=== PATIENT | female | born 1955 | race Caucasian/White ===

== ENCOUNTER → 2016-09-14 | Outpatient (CLI) | payer MEDICARE ==
--- NOTE | 2016-09-14 16:03 | XR ---
EXAMINATION TYPE: XR cervical spine comp DATE OF EXAM: 09/14/2016 3:55 PM COMPARISON: NONE HISTORY: Cervical pain. TECHNIQUE: 5 view cervical spine FINDINGS: There is moderate foraminal narrowing of C3-4 on the right. Some mild foraminal narrowing C 5-6 C6-7 is present on the right. Left foramen appear patent. Prevertebral space is normal. There is posterior disc space narrowing C5-C6 C6-7. Small anterior vertebral body spurs are present C5 and C6. Posterior spinal lamellar line is intact. Odontoid is limited with overlying occiput. IMPRESSION: 1. Mild degenerative disc changes and mild foraminal narrowing discussed above
== END | disposition home or self-care (01) ==
LOC: RADXRMAIN 15:33
PROVIDERS: ATTEND Family Medicine
DX: M99.71 Connective tissue and disc stenosis of intervertebral foramina of cervical region (principal); M50.10 Cervical disc disorder with radiculopathy, unspecified cervical region
CPT/HCPCS: 72050

== ENCOUNTER 2016-10-26 12:21 | Inpatient (IN) | payer MEDICARE ==
[2016-10-26] MEDS ORDERED: hydrALAZINE HCL 20 MG/ML 1 ML VIAL IVP STA ×2 (13:24→15:55)
--- NOTE | 2016-10-26 13:27 | ED ---
General Adult HPI - General Chief complaint: Recheck/Abnormal Lab/Rx Stated complaint: High BP Time Seen by Provider: 10/26/16 12:39 Source: patient, EMS, RN notes reviewed Mode of arrival: EMS Limitations: no limitations - History of Present Illness Initial comments: Patient is 61-year-old female who presents emergency room today with a chief complaint of elevated blood pressure and headache. Patient does admit that she was on her way to physical therapy today. She does admit to chronic back and neck pain. States she has a history of fibromyalgia. States she was driving in today and was more stressed out because the roads were bad. She states that when she got there she had a blood pressure check was elevated. States was checked again and was still elevated and was advised come here to the emergency room for further evaluation. Patient was brought in by EMS. She states she's noticed last week when she was at physical therapy her blood pressure was mildly elevated. She believes that was in the 160s. Patient states she has had a headache. She is currently rates it a 4/10. She states it feels like it' s up front. She believes it may be coming from her neck pain. She denies any other complaints or symptoms. She states she usually takes Ultram for pain. She states she did take one earlier today. Does admit to a history of hypertension and takes blood pressure medication. She states she believes she takes a dose in the morning and did take her normal pills. Patient admits that EMS told her blood sugar was elevated at 299. She states this is being watched by the family doctor. She states she's been borderline in the past. Patient denies any recent fever, chills, shortness of breath, chest pain, back pain, abdominal pain, nausea or vomiting, numbness or tingling, dysuria or hematuria, constipation or diarrhea, visual changes, or any other complaints. - Related Data Home Medications Medication Instructions Recorded Confirmed Albuterol Inhaler [Ventolin Hfa 1 - 2 puff INHALATION RT-QID PRN 10/26/16 Inhaler] Albuterol Nebulized [Ventolin 2.5 mg INHALATION RT-QID PRN 10/26/16 10/26/16 Nebulized] Bumetanide [BUMEX] 0.25 mg PO DAILY PRN 10/26/16 10/26/16 Fluticasone Nasal [place] [Flonase 2 spr EA NOSTRIL HS 10/26/16 10/26/16 Nasal [place]] Levothyroxine Sodium [Synthroid] 175 mcg PO DAILY 10/26/16 10/26/16 Meloxicam [Mobic] 15 mg PO DAILY 10/26/16 10/26/16 Metoprolol Tartrate [Lopressor] 50 mg PO BID 10/26/16 10/26/16 Montelukast Sodium [Singulair] 10 mg PO HS 10/26/16 10/26/16 Multivitamins, Thera [Multivitamin 1 tab PO DAILY 10/26/16 10/26/16 (formulary)] Omeprazole [PriLOSEC] 20 mg PO AC-BRKFST 10/26/16 10/26/16 Polyethylene Glycol 3350 [Miralax] 17 gm PO DAILY PRN 10/26/16 10/26/16 Simvastatin [Zocor] 10 mg PO HS 10/26/16 10/26/16 traMADol HCl [Ultram] 50 mg PO TID PRN 10/26/16 10/26/16 traZODone HCL [Desyrel] 150 mg PO HS 10/26/16 10/26/16 Allergies Allergy/AdvReac Type Severity Reaction Status Date / Time amoxicillin [From Augmentin] Allergy Unknown Verified 10/26/16 13:37 clavulanic acid Allergy Unknown Verified 10/26/16 13:37 [From Augmentin] milk Allergy Nausea & Verified 10/26/16 13:37 Vomiting & Diarrhea sulfamethoxazole Allergy Unknown Verified 10/26/16 13:37 [From Bactrim] trimethoprim [From Bactrim] Allergy Unknown Verified 10/26/16 13:37 Review of Systems ROS Statement: Those systems with pertinent positive or pertinent negative responses have been documented in the HPI. ROS Other: All systems not noted in ROS Statement are negative. Past Medical History Past Medical History: Diabetes Mellitus, Hypertension History of Any Multi-Drug Resistant Organisms: None Reported Past Surgical History: No Surgical Hx Reported Past Psychological History: Anxiety, Depression General Exam - General Exam Comments Initial Comments: General: The patient is awake and alert, in no distress, and does not appear acutely ill. Eye: Pupils are equal, round and reactive to light, extra-ocular movements are intact. No nystagmus. There is normal conjunctiva bilaterally. No signs of icterus. Ears, nose, mouth and throat: There are moist mucous membranes and no oral lesions. Neck: The neck is supple, there is no tenderness or JVD. Cardiovascular: There is a regular rate and rhythm. No murmur, rub or gallop is appreciated. Respiratory: Lungs are clear to auscultation, respirations are non-labored, breath sounds are equal. No wheezes, stridor, rales, or rhonchi. Gastrointestinal: Soft, non-distended, non-tender abdomen without masses or organomegaly noted. There is no rebound or guarding present. No CVA tenderness. Bowel sounds are unremarkable. Musculoskeletal: Normal ROM, no tenderness. Strength 5/5. Sensation intact. Pulses equal bilaterally 2+. Neurological: A&O x 3. CN II-XII intact, There are no obvious motor or sensory deficits. Coordination appears grossly intact. Speech is normal. Skin: Skin is warm and dry and no rashes or lesions are noted. Psychiatric: Cooperative, appropriate mood & affect, normal judgment. Limitations: no limitations Course Vital Signs 10/26/16 10/26/16 10/26/16 12:40 13:00 13:32 Temperature 98.7 F Pulse Rate 62 61 Pulse Rate [ 70 Right Standing Pulse Oximetery ] Respiratory 16 16 Rate Blood Pressure 200/110 183/88 O2 Sat by Pulse 91 L 95 Oximetry 10/26/16 10/26/16 10/26/16 15:00 15:52 16:21 Temperature Pulse Rate 88 72 70 Pulse Rate [ Right Standing Pulse Oximetery ] Respiratory 18 18 18 Rate Blood Pressure 176/87 220/100 196/91 O2 Sat by Pulse 96 96 98 Oximetry 10/26/16 18:03 Temperature Pulse Rate 73 Pulse Rate [ Right Standing Pulse Oximetery ] Respiratory 16 Rate Blood Pressure 212/100 O2 Sat by Pulse 97 Oximetry - Reevaluation(s) Reevaluation #1: 10/26/16 13:50 Patient reexamined at this time and blood pressure has improved after 10 mg hydralazine. She states headache feeling slightly better. She mitts at this time she is been having some discomfort to the right side of the chest wall. She states this started on her way to the hospital in the ambulance. Patient did not state this complaint initially. EKG and troponin currently pending. EKG Findings - EKG Comments: EKG Findings:: EKG is performed at 1411: Shows normal sinus rhythm at 61 bpm. NC interval 164. QRS 132. QT/QTc 472/475. Shows evidence for a left axis deviation and right bundle branch block. No acute ST changes. Medical Decision Making - Medical Decision Making Patient reexamined at this time shows no signs of distress. She is resting comfortably in the stretcher. Blood pressure remains elevated here the emergency room after several doses of blood pressure medication. Patient's repeat troponin negative. Patient's still having mild headache will be admitted for hypertension urgency. Case discussed with the physician Dr. Johnson. Patient with the plan states understanding. - Lab Data Result diagrams: 10/26/16 12:41 10/26/16 12:41 Lab Results 10/26/16 10/26/16 10/26/16 Range/Units 12:41 12:41 12:41 WBC 4.7 (3.8-10.6) k/uL RBC 4.24 (3.80-5.40) m/uL Hgb 13.6 (11.4-16.0) gm/dL Hct 40.4 (34.0-46.0) % MCV 95.1 (80.0-100.0) fL MCH 32.1 (25.0-35.0) pg MCHC 33.8 (31.0-37.0) g/dL RDW 13.0 (11.5-15.5) % Plt Count 164 (150-450) k/uL Neutrophils % 62 % Lymphocytes % 26 % Monocytes % 5 % Eosinophils % 2 % Basophils % 1 % Neutrophils # 2.9 (1.3-7.7) k/uL Lymphocytes # 1.2 (1.0-4.8) k/uL Monocytes # 0.2 (0-1.0) k/uL Eosinophils # 0.1 (0-0.7) k/uL Basophils # 0.0 (0-0.2) k/uL Sodium 140 (137-145) mmol/L Potassium 3.6 (3.5-5.1) mmol/L Chloride 100 (98-107) mmol/L Carbon Dioxide 30 (22-30) mmol/L Anion Gap 10 mmol/L BUN 12 (7-17) mg/dL Creatinine 0.70 (0.52-1.04) mg/dL Est GFR (MDRD) Af Amer >60 (>60 ml/min/1.73 sqM) Est GFR (MDRD) Non-Af >60 (>60 ml/min/1.73 sqM) Glucose 226 H (74-99) mg/dL Calcium 9.0 (8.4-10.2) mg/dL Total Bilirubin 1.1 (0.2-1.3) mg/dL AST 68 H (14-36) U/L ALT 79 H (9-52) U/L Alkaline Phosphatase 85 (38-126) U/L Troponin I <0.012 (0.000-0.034) ng/mL Total Protein 6.5 (6.3-8.2) g/dL Albumin 3.7 (3.5-5.0) g/dL 10/26/16 Range/Units 15:26 WBC (3.8-10.6) k/uL RBC (3.80-5.40) m/uL Hgb (11.4-16.0) gm/dL Hct (34.0-46.0) % MCV (80.0-100.0) fL MCH (25.0-35.0) pg MCHC (31.0-37.0) g/dL RDW (11.5-15.5) % Plt Count (150-450) k/uL Neutrophils % % Lymphocytes % % Monocytes % % Eosinophils % % Basophils % % Neutrophils # (1.3-7.7) k/uL Lymphocytes # (1.0-4.8) k/uL Monocytes # (0-1.0) k/uL Eosinophils # (0-0.7) k/uL Basophils # (0-0.2) k/uL Sodium (137-145) mmol/L Potassium (3.5-5.1) mmol/L Chloride (98-107) mmol/L Carbon Dioxide (22-30) mmol/L Anion Gap mmol/L BUN (7-17) mg/dL Creatinine (0.52-1.04) mg/dL Est GFR (MDRD) Af Amer (>60 ml/min/1.73 sqM) Est GFR (MDRD) Non-Af (>60 ml/min/1.73 sqM) Glucose (74-99) mg/dL Calcium (8.4-10.2) mg/dL Total Bilirubin (0.2-1.3) mg/dL AST (14-36) U/L ALT (9-52) U/L Alkaline Phosphatase (38-126) U/L Troponin I <0.012 (0.000-0.034) ng/mL Total Protein (6.3-8.2) g/dL Albumin (3.5-5.0) g/dL Disposition Clinical Impression: Hypertensive urgency Disposition: ADMITTED IP TO THIS HOSP Condition: Stable Time of Disposition: 18:18
[2016-10-26 13:30] LABS: ALT 79 U/L (9-52); AST 68 U/L (14-36); Alkaline Phosphatase 85 U/L (38-126); Anion Gap 10 mmol/L; Blood Urea Nitrogen 12 mg/dL (7-17); Carbon Dioxide 30 mmol/L (22-30); Chloride 100 mmol/L (98-107); Glucose 226 mg/dL (74-99); Non-African American GFR(MDRD) >60 (>60 ml/min/1.73 sqM); Potassium 3.6 mmol/L (3.5-5.1); Sodium 140 mmol/L (137-145); Total Bilirubin 1.1 mg/dL (0.2-1.3); Total Protein 6.5 g/dL (6.3-8.2)
[2016-10-26 13:36] LABS: Basophils % (A) 1 %; CH 32.1; CHCM 33.9; Eosinophils # (A) 0.1 k/uL (0-0.7); Eosinophils % (A) 2 %; HCT 40.4 % (34.0-46.0); HDW 2.95; HGB 13.6 gm/dL (11.4-16.0); Luc # (Auto) 0.19; Luc % (Auto) 4; Lymphocytes # (A) 1.2 k/uL (1.0-4.8); Lymphocytes % (A) 26 %; MCH 32.1 pg (25.0-35.0); MCHC 33.8 g/dL (31.0-37.0); MCV 95.1 fL (80.0-100.0); Monocytes # (A) 0.2 k/uL (0-1.0); Monocytes % (A) 5 %; Neutrophils # (A) 2.9 k/uL (1.3-7.7); Neutrophils % (A) 62 %; RBC 4.24 m/uL (3.80-5.40); WBC 4.7 k/uL (3.8-10.6); WBC (Perox) 4.84
[2016-10-26] MEDS ORDERED: cloNIDine HCL 0.2 MG TAB PO STA (16:46)
[2016-10-26] MEDS ORDERED: POLYETHYLENE GLYCOL 3350 17 GM POWD.PACK PO PRN (18:12)
[2016-10-26] MEDS ORDERED: ALBUTEROL NEBULIZED 2.5 MG/3 ML INHALATION PRN ×2 (18:12)
[2016-10-26] MEDS ORDERED: BUMETANIDE 0.5 MG TABLET PO PRN (18:12)
[2016-10-26] MEDS ORDERED: NALOXONE 0.4 MG/ML 1 ML VIAL IV PRN (18:20)
[2016-10-26] MEDS ORDERED: SODIUM CHLORIDE 0.9% 1,000 ML IV ONE (18:20)
[2016-10-26] MEDS ORDERED: ENALAPRILAT 1.25 MG/ML 1 ML VIAL IVP STA (18:29)
[2016-10-26] MEDS: traMADol 50 MG TAB PO PRN (20:32)
[2016-10-26] MEDS: METOPROLOL TARTRATE 50 MG TAB PO SCH (20:32)
[2016-10-26] MEDS ORDERED: ATORVASTATIN 10 MG TAB PO SCH (21:00)
[2016-10-26 22:20] VITALS: BMI 42.6
[2016-10-26] MEDS: MONTELUKAST 10 MG TAB PO SCH (22:38)
[2016-10-26] MEDS: traZODone HCL 100 MG TAB PO SCH (22:39)
[2016-10-27 06:20] LABS: Basophils % (A) 1 %; CH 31.8; CHCM 33.3; Eosinophils # (A) 0.2 k/uL (0-0.7); Eosinophils % (A) 4 %; HCT 38.4 % (34.0-46.0); HDW 2.91; HGB 13.2 gm/dL (11.4-16.0); Luc # (Auto) 0.11; Luc % (Auto) 3; Lymphocytes # (A) 1.3 k/uL (1.0-4.8); Lymphocytes % (A) 34 %; MCHC 34.3 g/dL (31.0-37.0); Monocytes # (A) 0.3 k/uL (0-1.0); Monocytes % (A) 8 %; Neutrophils # (A) 1.9 k/uL (1.3-7.7); Neutrophils % (A) 50 %; RDW 13.1 % (11.5-15.5); WBC 3.7 k/uL (3.8-10.6); WBC (Perox) 4.16
[2016-10-27 06:37] LABS: ALT 69 U/L (9-52); AST 51 U/L (14-36); Alkaline Phosphatase 73 U/L (38-126); Anion Gap 8 mmol/L; Blood Urea Nitrogen 11 mg/dL (7-17); Calcium 9.3 mg/dL (8.4-10.2); Carbon Dioxide 30 mmol/L (22-30); Chloride 100 mmol/L (98-107); Glucose 200 mg/dL (74-99); Non-African American GFR(MDRD) >60 (>60 ml/min/1.73 sqM); Potassium 3.8 mmol/L (3.5-5.1); Sodium 138 mmol/L (137-145); Total Bilirubin 1.2 mg/dL (0.2-1.3); Total Protein 5.8 g/dL (6.3-8.2)
[2016-10-27] MEDS: LEVOTHYROXINE 88 MCG TAB PO SCH (06:53)
[2016-10-27] MEDS: PANTOPRAZOLE 40 MG TABLET PO SCH (06:54)
[2016-10-27 09:01] LABS: Glucose,Whole Blood 193 mg/dL (75-99)
[2016-10-27] MEDS: METOPROLOL TARTRATE 50 MG TAB PO SCH ×2 (09:28→21:26)
[2016-10-27] MEDS: MELOXICAM 7.5 MG TAB PO SCH (09:28)
[2016-10-27] MEDS: INSULIN LISPRO (humaLOG) 300 UNIT/3 ML VIAL SQ SCH ×4 (09:55→21:26)
[2016-10-27 12:41] LABS: Glucose,Whole Blood 231 mg/dL (75-99)
[2016-10-27 12:42] LABS: Hemoglobin A1C 7.7 % (4.2-6.1)
[2016-10-27] MEDS: MULTIVITAMINS, THERA 1 EACH TAB PO SCH (12:42)
--- NOTE | 2016-10-27 13:36 | P.HPIM ---
History of Present Illness H&P Date: 10/27/16 Chief Complaint: Elevated blood pressures This is a 61-year-old female, patient of Dr. Castaneda. She has a known history of hypertension, borderline diabetes, fibromyalgia and chronic neck and back pain, osteoarthritis, hypothyroidism and asthma. Patient presents to the hospital with complaints of elevated blood pressures and headache. Patient's that she goes to physical therapy for her neck and back. Her blood pressure was checked there and was running in the 200s. She reports taking her blood pressure medication. The Lopressor 50 mg twice a day. Since her blood pressures were elevated physical therapist did recommend that she goes to the emergency room to be checked out. She was found to have a blood pressure of 200 /110 in the emergency room. She had been given IV hydralazine and Catapres. Blood pressures this morning have shown improvement. Patient denies any vision changes or any numbness or tingling of the extremities. Denies any slurred speech or facial droop. She did admit to having some chest discomfort that has now improved. Troponins are negative 2. EKG shows a normal sinus rhythm with a left bundle branch block. And her last blood pressure was 135/81. Patient denies any shortness of breath, nausea or vomiting, bowel movement changes or urinary symptoms. Review of Systems Please refer to HPI otherwise unremarkable Past Medical History Past Medical History: Asthma, Chest Pain / Angina, Diabetes Mellitus, Fibromyalgia, Hyperlipidemia, Hypertension, Osteoarthritis (OA), Thyroid Disorder Additional Past Medical History / Comment(s): borderline diabetic, not on any meds, hypothyroid, anemia, IBS History of Any Multi-Drug Resistant Organisms: None Reported Past Surgical History: Cholecystectomy, Hysterectomy, Tonsillectomy Additional Past Surgical History / Comment(s): Had to open up after gall bladder to remove stone, L breast biopsy Past Anesthesia/Blood Transfusion Reactions: No Reported Reaction Additional Past Anesthesia/Blood Transfusion Reaction / Comment(s): Sickness with morphine Past Psychological History: Anxiety, Depression Smoking Status: Never smoker - Past Family History Mother Family Medical History: Congestive Heart Failure (CHF), Diabetes Mellitus, Hypertension Additional Family Medical History / Comment(s): from CHF Father Additional Family Medical History / Comment(s): Emphysema Medications and Allergies Home Medications Medication Instructions Recorded Confirmed Type Albuterol Inhaler [Ventolin Hfa 1 - 2 puff INHALATION RT-QID PRN 10/26/16 History Inhaler] Albuterol Nebulized [Ventolin 2.5 mg INHALATION RT-QID PRN 10/26/16 10/26/16 History Nebulized] Bumetanide [BUMEX] 0.25 mg PO DAILY PRN 10/26/16 10/26/16 History Fluticasone Nasal [place] [Flonase 2 spr EA NOSTRIL HS 10/26/16 10/26/16 History Nasal [place]] Levothyroxine Sodium [Synthroid] 175 mcg PO DAILY 10/26/16 10/26/16 History Meloxicam [Mobic] 15 mg PO DAILY 10/26/16 10/26/16 History Metoprolol Tartrate [Lopressor] 50 mg PO BID 10/26/16 10/26/16 History Montelukast Sodium [Singulair] 10 mg PO HS 10/26/16 10/26/16 History Multivitamins, Thera [Multivitamin 1 tab PO DAILY 10/26/16 10/26/16 History (formulary)] Omeprazole [PriLOSEC] 20 mg PO AC-BRKFST 10/26/16 10/26/16 History Polyethylene Glycol 3350 [Miralax] 17 gm PO DAILY PRN 10/26/16 10/26/16 History Simvastatin [Zocor] 10 mg PO HS 10/26/16 10/26/16 History traMADol HCl [Ultram] 50 mg PO TID PRN 10/26/16 10/26/16 History traZODone HCL [Desyrel] 150 mg PO HS 10/26/16 10/26/16 History Allergies Allergy/AdvReac Type Severity Reaction Status Date / Time amoxicillin [From Augmentin] Allergy Unknown Verified 10/26/16 13:37 clavulanic acid Allergy Unknown Verified 10/26/16 13:37 [From Augmentin] milk Allergy Nausea & Verified 10/26/16 13:37 Vomiting & Diarrhea sulfamethoxazole Allergy Unknown Verified 10/26/16 13:37 [From Bactrim] trimethoprim [From Bactrim] Allergy Unknown Verified 10/26/16 13:37 Physical Exam Vitals: Vital Signs Temp Pulse Pulse Resp BP BP Pulse Ox 10/27/16 12:47 16 10/27/16 10:40 97.3 F L 65 16 158/80 96 03/31/17 08:50 18 10/27/16 08:00 97.6 F 58 L 18 135/81 94 L 10/27/16 04:00 98.0 F 54 L 18 157/77 95 10/27/16 00:00 97.0 F L 54 L 18 143/70 94 L 10/26/16 21:42 97.6 F 64 16 165/95 96 10/26/16 21:15 97.6 F 10/26/16 21:02 77 18 192/89 96 10/26/16 19:57 71 18 195/95 96 10/26/16 18:56 73 16 200/92 95 Intake and Output 10/26/16 10/27/16 10/27/16 22:59 06:59 14:59 Intake Total 140 Output Total 200 800 500 Balance -200 -660 -500 Intake: IV 140 Sodium Chloride 0.9% 1, 140 000 ml @ 20 mls/hr IV . Q24H ONE Rx#:[id number] Output: Urine 200 800 500 Other: Voiding Method Toilet Toilet # Voids 1 2 0 Weight 112.6 kg 112.6 kg Head normocephalic Neck supple Lungs coarse and clear with cough Heart regular rate and rhythm S1-S2, no rub or gallop Abdomen is soft nontender nondistended positive bowel sounds no hepatosplenomegaly Extremities no edema Neuro alert and orientated to 3 Results CBC & Chem 7: 10/27/16 05:58 10/27/16 05:55 Labs: Abnormal Lab Results - Last 24 Hours (Table) 10/27/16 10/27/16 10/27/16 Range/Units 05:55 05:58 08:58 WBC 3.7 L (3.8-10.6) k/uL Glucose 200 H (74-99) mg/dL POC Glucose (mg/dL) 193 H (75-99) mg/dL AST 51 H (14-36) U/L ALT 69 H (9-52) U/L Total Protein 5.8 L (6.3-8.2) g/dL Albumin 3.4 L (3.5-5.0) g/dL 10/27/16 Range/Units 12:40 WBC (3.8-10.6) k/uL Glucose (74-99) mg/dL POC Glucose (mg/dL) 231 H (75-99) mg/dL AST (14-36) U/L ALT (9-52) U/L Total Protein (6.3-8.2) g/dL Albumin (3.5-5.0) g/dL Thrombosis Risk Factor Assmnt - Choose All That Apply Each Factor Represents 1 point: Obesity (BMI >25) Each Risk Factor Represents 2 Points: Age 61-74 years Thrombosis Risk Factor Assessment Total Risk Factor Score: 3 Thrombosis Risk Factor Assessment Level: Moderate Risk Assessment and Plan Plan: 1. Hypertensive emergency present on admission: Patient did receive IV hydralazine and Catapres. Continue her metoprolol and the IV Vasotec as needed. Consult cardiology. Add lisinopril 10 mg daily 2. Episode of chest pain likely related to the hypertension. Troponins are negative 2. EKG showing a normal sinus rhythm with a left bundle branch block. 3. History of borderline diabetes: Blood sugar elevated of 229. Check blood sugars every before meals and at bedtime with sliding scale coverage. Check hemoglobin A1c. 4. Mildly elevated LFTs: Discontinue statin. Monitor liver function studies 5. History of chronic neck and back pain 6. Fibromyalgia 7. Chronic persistent asthma continue nebulizers. No evidence of exacerbation 8. Hypothyroidism: Continue Synthroid GI prophylaxis Protonix and DVT prophylaxis Lovenox Time with Patient: Greater than 30 (Greater than 50% of the total time spent in counseling and coordination of care.I performed an examination of the patient and discussed their management with the physician [employer] Tech. I have reviewed the Physician [employer] Tech's notes and agree with the documented findings and plan of care)
[2016-10-27] MEDS: LISINOPRIL 10 MG TAB PO SCH (14:29)
[2016-10-27] MEDS: ENOXAPARIN 40 MG/0.4 ML SYRINGE SQ SCH (14:29)
[2016-10-27 16:50] LABS: Glucose,Whole Blood 156 mg/dL (75-99)
[2016-10-27 20:52] LABS: Glucose,Whole Blood 222 mg/dL (75-99)
[2016-10-27] MEDS: MONTELUKAST 10 MG TAB PO SCH (21:26)
[2016-10-27] MEDS: traZODone HCL 100 MG TAB PO SCH (21:26)
[2016-10-27] MEDS: traMADol 50 MG TAB PO PRN (21:26)
[2016-10-27] MEDS: ENALAPRILAT 1.25 MG/ML 1 ML VIAL IVP PRN (23:03)
[2016-10-28 05:51] LABS: Glucose,Whole Blood 184 mg/dL (75-99)
[2016-10-28] MEDS: PANTOPRAZOLE 40 MG TABLET PO SCH (06:36)
[2016-10-28] MEDS: LEVOTHYROXINE 88 MCG TAB PO SCH (06:36)
[2016-10-28] MEDS: ENALAPRILAT 1.25 MG/ML 1 ML VIAL IVP PRN (06:37)
[2016-10-28] MEDS: INSULIN LISPRO (humaLOG) 300 UNIT/3 ML VIAL SQ SCH ×4 (06:37→22:59)
[2016-10-28 06:43] LABS: Basophils % (A) 1 %; CH 31.7; CHCM 33.4; Eosinophils # (A) 0.1 k/uL (0-0.7); Eosinophils % (A) 4 %; HDW 2.93; HGB 13.1 gm/dL (11.4-16.0); Luc # (Auto) 0.11; Luc % (Auto) 3; Lymphocytes # (A) 1.2 k/uL (1.0-4.8); Lymphocytes % (A) 33 %; MCH 31.3 pg (25.0-35.0); MCHC 32.8 g/dL (31.0-37.0); MCV 95.4 fL (80.0-100.0); Mean Platelet Volume 7.6; Monocytes # (A) 0.3 k/uL (0-1.0); Monocytes % (A) 8 %; Neutrophils # (A) 1.9 k/uL (1.3-7.7); Neutrophils % (A) 53 %; RBC 4.19 m/uL (3.80-5.40); WBC 3.7 k/uL (3.8-10.6); WBC (Perox) 4.17
[2016-10-28 07:02] LABS: ALT 71 U/L (9-52); AST 47 U/L (14-36); Alkaline Phosphatase 72 U/L (38-126); Anion Gap 8 mmol/L; Blood Urea Nitrogen 13 mg/dL (7-17); Calcium 9.1 mg/dL (8.4-10.2); Carbon Dioxide 31 mmol/L (22-30); Chloride 101 mmol/L (98-107); Glucose 186 mg/dL (74-99); Sodium 140 mmol/L (137-145); Total Bilirubin 0.9 mg/dL (0.2-1.3); Total Protein 6.1 g/dL (6.3-8.2)
[2016-10-28 07:18] LABS: Non-African American GFR(MDRD) >60 (>60 ml/min/1.73 sqM)
[2016-10-28] MEDS: METOPROLOL TARTRATE 50 MG TAB PO SCH (08:00)
[2016-10-28] MEDS: MELOXICAM 7.5 MG TAB PO SCH (08:00)
[2016-10-28] MEDS: ENOXAPARIN 40 MG/0.4 ML SYRINGE SQ SCH (08:00)
[2016-10-28] MEDS: LISINOPRIL 10 MG TAB PO SCH (08:00)
[2016-10-28] MEDS: traMADol 50 MG TAB PO PRN (08:03)
--- NOTE | 2016-10-28 09:55 | P.CRDCN ---
History of Present Illness Consult date: 10/28/16 Requesting physician: Kvng Boo Consult reason: hypertension Chief complaint: Chest pain and elevated blood pressure History of present illness: This is a pleasant 61-year-old female with history of hypertension, hyperlipidemia, hypothyroidism, borderline diabetes for which she was trying to control with diet, she is a nonsmoker, history of asthma, arthritis, vague history of premature coronary artery disease in her mother. She presents to the hospital because of elevated blood pressure, headache as well as symptoms of chest discomfort. According to the patient, she states that she has been getting intermittent chest discomfort which she describes as an ache in the upper center area of her chest which radiates up into her jaw and her ears, and at times radiates down her arm. She states that the symptoms come and go lasting a couple of minutes each time, symptoms come with rest or with activity. She states that she was evaluated by her physician for the symptoms who felt it was musculoskeletal in nature, she was then seen by orthopedics who performed an MRI which revealed arthritis. Yesterday the patient was at physical therapy, she states that she had a mild headache, they checked her blood pressure which was noted to be greater than 200 systolic, EMS was called and patient was brought to the emergency room for further evaluation. At the time of the elevated pressure at physical therapy she was not experiencing chest pain. Patient was on metoprolol tartrate 50 mg by mouth twice a day for blood pressure at home, she states that she did not check it regularly. Initial EKG on arrival here showed a normal sinus rhythm with a right bundle branch block pattern and nonspecific ST-T wave changes. No chest x-ray was performed. I pressure on arrival to the emergency room 200/110, heart rate 60, 91% on room air. Blood pressure this morning 166/85. Patient was given 10 mg of hydralazine in the emergency room. She does state that her headache improved after the blood pressure came down, she did have one episode of chest discomfort in the emergency room. Laboratory data, CBC normal, potassium 4.0, BUN 13, creatinine 0.8. Glucose on arrival to 26. Hemoglobin A1c 7.7. AST 47 , ALT 71. Troponins have been negative 2. At the time of my examination this morning, patient denies headache, no chest discomfort. She is currently on lisinopril 10 mg daily along with metoprolol tartrate 50 mg 1 tablet by mouth twice a day. Past Medical History Past Medical History: Asthma, Chest Pain / Angina, Diabetes Mellitus, Fibromyalgia, Hyperlipidemia, Hypertension, Osteoarthritis (OA), Thyroid Disorder Additional Past Medical History / Comment(s): borderline diabetic, not on any meds, hypothyroid, anemia, IBS History of Any Multi-Drug Resistant Organisms: None Reported Past Surgical History: Cholecystectomy, Hysterectomy, Tonsillectomy Additional Past Surgical History / Comment(s): Had to open up after gall bladder to remove stone, L breast biopsy Past Anesthesia/Blood Transfusion Reactions: No Reported Reaction Additional Past Anesthesia/Blood Transfusion Reaction / Comment(s): Sickness with morphine Past Psychological History: Anxiety, Depression Smoking Status: Never smoker - Past Family History Mother Family Medical History: Congestive Heart Failure (CHF), Diabetes Mellitus, Hypertension Additional Family Medical History / Comment(s): from CHF Father Additional Family Medical History / Comment(s): Emphysema Medications and Allergies Home Medications Medication Instructions Recorded Confirmed Type Albuterol Inhaler [Ventolin Hfa 1 - 2 puff INHALATION RT-QID PRN 10/26/16 History Inhaler] Albuterol Nebulized [Ventolin 2.5 mg INHALATION RT-QID PRN 10/26/16 10/26/16 History Nebulized] Bumetanide [BUMEX] 0.25 mg PO DAILY PRN 10/26/16 10/26/16 History Fluticasone Nasal [place] [Flonase 2 spr EA NOSTRIL HS 10/26/16 10/26/16 History Nasal [place]] Levothyroxine Sodium [Synthroid] 175 mcg PO DAILY 10/26/16 10/26/16 History Meloxicam [Mobic] 15 mg PO DAILY 10/26/16 10/26/16 History Metoprolol Tartrate [Lopressor] 50 mg PO BID 10/26/16 10/26/16 History Montelukast Sodium [Singulair] 10 mg PO HS 10/26/16 10/26/16 History Multivitamins, Thera [Multivitamin 1 tab PO DAILY 10/26/16 10/26/16 History (formulary)] Omeprazole [PriLOSEC] 20 mg PO AC-BRKFST 10/26/16 10/26/16 History Polyethylene Glycol 3350 [Miralax] 17 gm PO DAILY PRN 10/26/16 10/26/16 History Simvastatin [Zocor] 10 mg PO HS 10/26/16 10/26/16 History traMADol HCl [Ultram] 50 mg PO TID PRN 10/26/16 10/26/16 History traZODone HCL [Desyrel] 150 mg PO HS 10/26/16 10/26/16 History Allergies Allergy/AdvReac Type Severity Reaction Status Date / Time amoxicillin [From Augmentin] Allergy Unknown Verified 10/26/16 13:37 clavulanic acid Allergy Unknown Verified 10/26/16 13:37 [From Augmentin] milk Allergy Nausea & Verified 10/26/16 13:37 Vomiting & Diarrhea sulfamethoxazole Allergy Unknown Verified 10/26/16 13:37 [From Bactrim] trimethoprim [From Bactrim] Allergy Unknown Verified 10/26/16 13:37 Physical Exam Vitals: Vital Signs Temp Pulse Pulse Resp BP BP Pulse Ox 10/28/16 08:00 98.5 F 71 18 166/85 95 10/28/16 04:00 97.6 F 67 16 183/91 96 10/28/16 01:04 170/79 10/28/16 00:00 98.0 F 66 16 171/102 158/100 94 L 10/27/16 20:00 97.0 F L 67 16 175/84 96 10/27/16 16:40 98.2 F 67 16 161/81 92 L 10/27/16 16:06 100 10/27/16 15:53 78 10/27/16 14:29 65 165/84 10/27/16 12:47 16 10/27/16 10:40 97.3 F L 65 16 158/80 96 Intake and Output 10/27/16 10/28/16 10/28/16 22:59 06:59 14:59 Intake Total 780 600 Output Total 800 600 600 Balance -20 0 -600 Intake: Intake, IV Titration 160 Amount Sodium Chloride 0.9% 1, 160 000 ml @ 20 mls/hr IV . Q24H ONE Rx#:[id number] Oral 620 600 Output: Urine 800 600 600 Other: Voiding Method Toilet Toilet # Voids 0 1 # Bowel Movements 0 Weight 112.7 kg PHYSICAL EXAMINATION: HEENT: Head is atraumatic, normocephalic. Pupils equal, round. Neck is supple. There is no elevated jugular venous pressure. HEART EXAMINATION: Heart S1, S2 normal. No murmur or gallop heard. CHEST EXAMINATION: Lungs are clear with mild diminished air entry to bilateral bases. ABDOMEN: Soft, obese, nontender. Bowel sounds are heard. No organomegaly noted. EXTREMITIES: 1+ peripheral pulses with trace evidence of peripheral edema and no calf tenderness noted. NEUROLOGIC patient is awake, alert and oriented -3. . Results 10/28/16 06:23 10/28/16 06:23 Cardiac Enzymes 10/28/16 Range/Units 06:23 AST 47 H (14-36) U/L CBC 10/28/16 Range/Units 06:23 WBC 3.7 L (3.8-10.6) k/uL RBC 4.19 (3.80-5.40) m/uL Hgb 13.1 (11.4-16.0) gm/dL Hct 40.0 (34.0-46.0) % Plt Count 155 (150-450) k/uL Comprehensive Metabolic Panel 10/28/16 Range/Units 06:23 Sodium 140 (137-145) mmol/L Potassium 4.0 (3.5-5.1) mmol/L Chloride 101 (98-107) mmol/L Carbon Dioxide 31 H (22-30) mmol/L BUN 13 (7-17) mg/dL Creatinine 0.80 (0.52-1.04) mg/dL Glucose 186 H (74-99) mg/dL Calcium 9.1 (8.4-10.2) mg/dL AST 47 H (14-36) U/L ALT 71 H (9-52) U/L Alkaline Phosphatase 72 (38-126) U/L Total Protein 6.1 L (6.3-8.2) g/dL Albumin 3.6 (3.5-5.0) g/dL Current Medications Generic Name Dose Route Start Last Admin Trade Name Freq PRN Reason Stop Dose Admin Albuterol Sulfate 2.5 mg 10/26/16 18:12 10/27/16 15:53 Ventolin Nebulized INHALATION 2.5 mg RT-QID PRN Administration Shortness Of Breath Bumetanide 0.25 mg 10/26/16 18:12 Bumetanide PO DAILY PRN Edema Enalaprilat 1.25 mg 10/26/16 18:31 10/28/16 06:37 Vasotec IVP 1.25 mg Q6HR PRN Administration Blood Pressure - High Enoxaparin Sodium 40 mg 10/27/16 13:00 10/28/16 08:00 Lovenox SQ 40 mg DAILY HODA Administration Insulin Human Lispro 0 unit 10/27/16 09:09 10/28/16 06:37 Humalog SQ 3 unit ACHS HODA Administration Protocol Levothyroxine Sodium 176 mcg 10/27/16 06:30 10/28/16 06:36 Synthroid PO 176 mcg 0630 HODA Administration Lisinopril 10 mg 10/27/16 14:00 10/28/16 08:00 Zestril PO 10 mg DAILY HODA Administration Meloxicam 15 mg 10/27/16 09:00 10/28/16 08:00 Mobic PO 15 mg DAILY HODA Administration Metoprolol Tartrate 50 mg 10/26/16 21:00 10/28/16 08:00 Lopressor PO 50 mg BID HODA Administration Montelukast Sodium 10 mg 10/26/16 21:00 10/27/16 21:26 Singulair PO 10 mg HS HODA Administration Multivitamins 1 each 10/27/16 12:00 10/27/16 12:42 Theragran PO 1 each 1200 HODA Administration Naloxone HCl 0.2 mg 10/26/16 18:20 Narcan IV Q2M PRN Opioid Reversal Pantoprazole Sodium 40 mg 10/27/16 07:30 10/28/16 06:36 Protonix PO 40 mg AC-BRKFST HODA Administration Polyethylene Glycol 17 gm 10/26/16 18:12 Miralax PO DAILY PRN Constipation Tramadol HCl 50 mg 10/26/16 18:12 10/28/16 08:03 Ultram PO 50 mg TID PRN Administration Pain Trazodone HCl 150 mg 10/26/16 21:00 10/27/16 21:26 Desyrel PO 150 mg HS HODA Administration Intake and Output 10/27/16 10/28/16 10/28/16 22:59 06:59 14:59 Intake Total 780 600 Output Total 800 600 600 Balance -20 0 -600 Intake: Intake, IV Titration 160 Amount Sodium Chloride 0.9% 1, 160 000 ml @ 20 mls/hr IV . Q24H ONE Rx#:[id number] Oral 620 600 Output: Urine 800 600 600 Other: Voiding Method Toilet Toilet # Voids 0 1 # Bowel Movements 0 Weight 112.7 kg 10/28/16 06:23 10/28/16 06:23 EKG Interpretations (text) EKG shows normal sinus rhythm with a right bundle branch block pattern and nonspecific ST-T wave changes Assessment and Plan Plan: Assessment and plan #1 hypertensive urgency #2 symptoms of intermittent chest discomfort, with some atypical features. Troponins negative 2. EKG shows normal sinus rhythm with a right bundle branch block and nonspecific ST-T wave changes. #3 history of hypertension #4 diabetes, not treated as an outpatient. #5 hyperlipidemia #6 asthma #7 arthritis #8 fibromyalgia #9 hypothyroidism #10 obesity Plan We will obtain an echocardiogram with Doppler study. Discontinue PRN antihypertensives. Obtain third troponin value. If blood pressure remains elevated consider the addition of hydrochlorothiazide. Once the patient's blood pressure stabilizes, she will require further evaluation to rule out underlying coronary artery disease. Initiate aspirin 81 mg daily and start statin. Monitor LFTs. Check fasting lipid profile. Repeat EKG. Further recommendations to follow. DNP note has been reviewed, I agree with a documented findings and plan of care. Patient was seen and examined.
[2016-10-28 10:18] LABS: Cholesterol 154 mg/dL (<200); HDL Cholesterol 34 mg/dL (40-60); Triglycerides 179 mg/dL (<150)
--- NOTE | 2016-10-28 10:43 | P.PN ---
Subjective Principal diagnosis: Hypertensive emergency Patient is a 61-year-old female patient of Dr. desai, who was sent to [facility] by her physical therapist due to significantly elevated blood pressure, she was evaluated in the emergency room and was admitted to telemetry floor blood pressure was in the range of 200/100 She was started on metoprolol and lisinopril she was also given hydralazine when necessary Blood pressure has improved since yesterday In addition patient states that she was having episodes of chest pain over the last several weeks she describes pressure in her chest radiating up to her neck and to her left arm, her pain resolved spontaneously in few minutes, she has not had any cardiac evaluation She states that she had a stress test several years ago that she was not able to complete due to asthma Objective - Vital Signs Vital signs: Vital Signs Temp 98.5 F 10/28/16 08:00 Pulse 71 10/28/16 08:00 Resp 18 10/28/16 08:00 BP 166/85 10/28/16 08:00 Pulse Ox 95 10/28/16 08:00 Intake & Output 10/27/16 10/28/16 10/28/16 18:59 06:59 18:59 Intake Total 780 600 Output Total 900 1000 600 Balance -120 -400 -600 Weight 112.6 kg 112.7 kg Intake: Intake, IV Titration 160 Amount Sodium Chloride 0.9% 1, 160 000 ml @ 20 mls/hr IV . Q24H ONE Rx#:[id number] Oral 620 600 Output: Urine 900 1000 600 Other: Voiding Method Toilet Toilet # Voids 0 1 # Bowel Movements 0 - Exam In general patient is alert and oriented 3 in no apparent distress HEENT head normocephalic and atraumatic Neck is supple no JVD no goiter no lymphadenopathy Chest is clear to auscultation no wheezing Cardiac exam reveals regular heart sounds no murmurs Abdomen is soft nontender no organomegaly Extremity exam reveals no edema no cyanosis or clubbing - Labs CBC & Chem 7: 10/28/16 06:23 10/28/16 06:23 Labs: Abnormal Lab Results - Last 24 Hours (Table) 10/27/16 10/27/16 10/27/16 Range/Units 05:58 12:40 16:43 WBC (3.8-10.6) k/uL Carbon Dioxide (22-30) mmol/L Glucose (74-99) mg/dL POC Glucose (mg/dL) 231 H 156 H (75-99) mg/dL Hemoglobin A1c 7.7 H (4.2-6.1) % AST (14-36) U/L ALT (9-52) U/L Total Protein (6.3-8.2) g/dL Triglycerides (<150) mg/dL HDL Cholesterol (40-60) mg/dL 10/27/16 10/28/16 10/28/16 Range/Units 20:50 05:46 06:23 WBC 3.7 L (3.8-10.6) k/uL Carbon Dioxide (22-30) mmol/L Glucose (74-99) mg/dL POC Glucose (mg/dL) 222 H 184 H (75-99) mg/dL Hemoglobin A1c (4.2-6.1) % AST (14-36) U/L ALT (9-52) U/L Total Protein (6.3-8.2) g/dL Triglycerides (<150) mg/dL HDL Cholesterol (40-60) mg/dL 10/28/16 10/28/16 Range/Units 06:23 06:23 WBC (3.8-10.6) k/uL Carbon Dioxide 31 H (22-30) mmol/L Glucose 186 H (74-99) mg/dL POC Glucose (mg/dL) (75-99) mg/dL Hemoglobin A1c (4.2-6.1) % AST 47 H (14-36) U/L ALT 71 H (9-52) U/L Total Protein 6.1 L (6.3-8.2) g/dL Triglycerides 179 H (<150) mg/dL HDL Cholesterol 34 L (40-60) mg/dL Assessment and Plan Plan: #1 hypertensive emergency on presentation Blood pressure improving but still elevated, at this time I will increase lisinopril from 10-20 mg #2 episodes of chest pain, no chest pain at this time, patient will need cardiac evaluation when stable Cardiology consult has been requested, patient had an echocardiogram this morning results are still pending #3 hyperlipidemia patient was started on Lipitor #4 hypothyroidism continue with Synthroid Will follow in a.m. possible discharge to home in the next 1-2 days
[2016-10-28] MEDS ORDERED: LISINOPRIL 10 MG TAB PO ONE (10:45)
[2016-10-28 11:54] LABS: Glucose,Whole Blood 176 mg/dL (75-99)
[2016-10-28] MEDS: ASPIRIN 81 MG CHEW PO SCH (12:10)
[2016-10-28] MEDS: MULTIVITAMINS, THERA 1 EACH TAB PO SCH (12:13)
[2016-10-28] MEDS: HYDROCHLOROTHIAZIDE 25 MG TAB PO SCH (13:16)
[2016-10-28] MEDS: CARVEDILOL 12.5 MG TAB PO SCH ×2 (13:16→16:43)
[2016-10-28] MEDS: amLODIPine 5 MG TAB PO SCH (16:44)
[2016-10-28 17:02] LABS: Glucose,Whole Blood 147 mg/dL (75-99)
--- NOTE | 2016-10-28 18:19 | ECHOF ---
Referral Reason:htn MEASUREMENTS -------- HEIGHT: 162.6 cm WEIGHT: 112.5 kg BP: 140/60 RVIDd: 3.1 cm (< 3.3) IVSd: 1.8 cm (0.6 - 1.1) LVIDd: 4.5 cm (3.9 - 5.3) LVPWd: 1.4 cm (0.6 - 1.1) IVSs: 2.2 cm LVIDs: 2.9 cm LVPWs: 1.6 cm LA Diam: 4.1 cm (2.7 - 3.8) LAESV Index (A-L): 40.15 ml/m Ao Diam: 3.7 cm (2.0 - 3.7) AV Cusp: 1.9 cm (1.5 - 2.6) LA Diam: 4.3 cm (2.7 - 3.8) MV EXCURSION: 20.130 mm (> 18.000) MV EF SLOPE: 83 mm/s (70 - 150) EPSS: 0.9 cm MV E Jhonatan: 0.70 m/s MV DecT: 222 ms MV A Jhonatan: 0.84 m/s MV E/A Ratio: 0.83 RAP: 5.00 mmHg RVSP: 30.59 mmHg FINDINGS -------- Sinus rhythm. This was a technically adequate study. Morbid Obesity The left ventricular size is normal. There is moderate concentric left ventricular hypertrophy. Overall left ventricular systolic function is normal with, an EF between 55 - 60 %. The LV end diastolic pressure is elevated 17.14. The right ventricle is normal in size. LA is severely dilated >40 ml/m2 The right atrial size is normal. There is mild aortic valve sclerosis. There is no evidence of aortic regurgitation. Mild mitral annular calcification present. Mild mitral regurgitation is present. No regurgitation noted There is no evidence of pulmonary hypertension. The right ventricular systolic pressure, as measured by Doppler, is 30.59mmHg. There is no pulmonic regurgitation present. The aortic root size is normal. There is no pericardial effusion. CONCLUSIONS -------- 1. Sinus rhythm. 2. There is no pulmonic regurgitation present. 3. There is no pericardial effusion. 4. There is moderate concentric left ventricular hypertrophy. 5. The LV end diastolic pressure is elevated 17.14. 6. LA is severely dilated >40 ml/m2 7. There is mild aortic valve sclerosis. 8. Mild mitral annular calcification present. 9. Mild mitral regurgitation is present. 10. No regurgitation noted 11. There is no evidence of pulmonary hypertension. [employer] OUT WORKER: Amparo Olvera RDCS
[2016-10-28] MEDS: MONTELUKAST 10 MG TAB PO SCH (20:36)
[2016-10-28] MEDS: ATORVASTATIN 40 MG TAB PO SCH (20:36)
[2016-10-28] MEDS: traZODone HCL 100 MG TAB PO SCH (20:37)
[2016-10-28 21:10] LABS: Glucose,Whole Blood 245 mg/dL (75-99)
[2016-10-29 05:45] LABS: Glucose,Whole Blood 183 mg/dL (75-99)
[2016-10-29] MEDS: PANTOPRAZOLE 40 MG TABLET PO SCH (06:44)
[2016-10-29] MEDS: CARVEDILOL 12.5 MG TAB PO SCH ×2 (06:44→16:48)
[2016-10-29] MEDS: LEVOTHYROXINE 88 MCG TAB PO SCH (06:44)
[2016-10-29] MEDS: INSULIN LISPRO (humaLOG) 300 UNIT/3 ML VIAL SQ SCH ×4 (06:44→21:38)
[2016-10-29 07:17] LABS: Basophils % (A) 1 %; CH 31.9; CHCM 33.3; Eosinophils # (A) 0.2 k/uL (0-0.7); Eosinophils % (A) 3 %; HCT 44.8 % (34.0-46.0); HGB 14.6 gm/dL (11.4-16.0); Luc # (Auto) 0.13; Luc % (Auto) 3; Lymphocytes # (A) 1.3 k/uL (1.0-4.8); Lymphocytes % (A) 28 %; MCH 31.4 pg (25.0-35.0); MCHC 32.6 g/dL (31.0-37.0); MCV 96.1 fL (80.0-100.0); Mean Platelet Volume 7.6; Monocytes # (A) 0.4 k/uL (0-1.0); Monocytes % (A) 8 %; Neutrophils # (A) 2.6 k/uL (1.3-7.7); Neutrophils % (A) 57 %; RBC 4.66 m/uL (3.80-5.40); WBC 4.5 k/uL (3.8-10.6); WBC (Perox) 4.74
[2016-10-29 07:30] LABS: ALT 87 U/L (9-52); AST 67 U/L (14-36); Alkaline Phosphatase 86 U/L (38-126); Anion Gap 11 mmol/L; Blood Urea Nitrogen 14 mg/dL (7-17); Calcium 9.6 mg/dL (8.4-10.2); Carbon Dioxide 32 mmol/L (22-30); Chloride 97 mmol/L (98-107); Glucose 184 mg/dL (74-99); Non-African American GFR(MDRD) >60 (>60 ml/min/1.73 sqM); Potassium 3.8 mmol/L (3.5-5.1); Sodium 140 mmol/L (137-145); Total Bilirubin 1.1 mg/dL (0.2-1.3); Total Protein 6.8 g/dL (6.3-8.2)
[2016-10-29] MEDS: traMADol 50 MG TAB PO PRN ×2 (08:20→17:03)
[2016-10-29] MEDS: amLODIPine 5 MG TAB PO SCH (08:21)
[2016-10-29] MEDS: ENOXAPARIN 40 MG/0.4 ML SYRINGE SQ SCH (08:21)
[2016-10-29] MEDS: HYDROCHLOROTHIAZIDE 25 MG TAB PO SCH (08:21)
[2016-10-29] MEDS: ASPIRIN 81 MG CHEW PO SCH (08:21)
[2016-10-29] MEDS: LISINOPRIL 20 MG TAB PO SCH (08:22)
[2016-10-29] MEDS: MELOXICAM 7.5 MG TAB PO SCH (08:22)
[2016-10-29 11:46] LABS: Glucose,Whole Blood 224 mg/dL (75-99)
[2016-10-29] MEDS: MULTIVITAMINS, THERA 1 EACH TAB PO SCH (11:47)
--- NOTE | 2016-10-29 14:19 | PN ---
Mrs. Rich is a 61-year-old female who presented with uncontrolled hypertension and severe headache. She still has some headache. Her blood pressure is much better control. She denies any symptoms of chest pain. Her breathing has been stable. She denies any dizziness, palpitation. She denies any nausea. She is ambulating in the room without significant difficulty. She continues to be at this time on aspirin once a day, Lipitor 40 mg daily, Coreg 12.5 mg twice a day, hydrochlorothiazide 25 mg daily, lisinopril 20 mg daily and amlodipine 5 mg daily. PHYSICAL EXAMINATION: Blood pressure 140/80 with a heart rate in the 70s. LUNGS: Clear. HEART: Regular rate and rhythm. S1 and S2, no S3, no rub. ABDOMEN: Soft, nontender. Obese. EXTREMITIES: No edema. Lab data revealed BUN, creatinine 14 and 0.8. Hemoglobin 14.6. IMPRESSION: 1. Hypertension under better control. 2. Prior episode of chest discomfort with no evidence of acute coronary syndrome. 3. History of hyperlipidemia. 4. History of arthritis. 5. Obesity. RECOMMENDATION: From the cardiac standpoint, I will continue to increase his level of activity. If she remains stable, I would expect she should be able to be discharged home as soon and followed as an outpatient. I have discussed those findings with the patient.
--- NOTE | 2016-10-29 16:12 | P.PN ---
Subjective Principal diagnosis: Hypertensive emergency Patient is a 61-year-old female patient of Dr. desai, who was sent to [facility] by her physical therapist due to significantly elevated blood pressure, she was evaluated in the emergency room and was admitted to telemetry floor blood pressure was in the range of 200/100 She was started on metoprolol and lisinopril she was also given hydralazine when necessary Blood pressure has improved since yesterday In addition patient states that she was having episodes of chest pain over the last several weeks she describes pressure in her chest radiating up to her neck and to her left arm, her pain resolved spontaneously in few minutes, she has not had any cardiac evaluation She states that she had a stress test several years ago that she was not able to complete due to asthma Objective - Vital Signs Vital signs: Vital Signs Temp 97.5 F L 10/29/16 11:55 Pulse 75 10/29/16 11:55 Resp 18 10/29/16 11:55 BP 167/95 10/29/16 11:55 Pulse Ox 97 10/29/16 11:55 Intake & Output 10/28/16 10/29/16 10/29/16 18:59 06:59 18:59 Intake Total 180 Output Total 600 2100 Balance -420 -2100 Weight 110.5 kg Intake: Oral 180 Output: Urine 600 2100 Other: # Voids 1 - Exam In general patient is alert and oriented 3 in no apparent distress HEENT head normocephalic and atraumatic Neck is supple no JVD no goiter no lymphadenopathy Chest is clear to auscultation no wheezing Cardiac exam reveals regular heart sounds no murmurs Abdomen is soft nontender no organomegaly Extremity exam reveals no edema no cyanosis or clubbing - Labs CBC & Chem 7: 10/29/16 06:30 10/29/16 06:30 Labs: Abnormal Lab Results - Last 24 Hours (Table) 10/28/16 10/28/16 10/29/16 Range/Units 16:59 21:09 05:43 Chloride (98-107) mmol/L Carbon Dioxide (22-30) mmol/L Glucose (74-99) mg/dL POC Glucose (mg/dL) 147 H 245 H 183 H (75-99) mg/dL AST (14-36) U/L ALT (9-52) U/L 10/29/16 10/29/16 Range/Units 06:30 11:37 Chloride 97 L (98-107) mmol/L Carbon Dioxide 32 H (22-30) mmol/L Glucose 184 H (74-99) mg/dL POC Glucose (mg/dL) 224 H (75-99) mg/dL AST 67 H (14-36) U/L ALT 87 H (9-52) U/L Assessment and Plan Plan: #1 hypertensive emergency on presentation Blood pressure improving but still elevated, at this time I will increase lisinopril from 10-20 mg so Norvasc 5 mg was added to her regimen #2 episodes of chest pain, no chest pain at this time, patient will need cardiac evaluation when stable Cardiology consult has been requested, patient had an echocardiogram this morning results are still pending #3 hyperlipidemia patient was started on Lipitor #4 hypothyroidism continue with Synthroid #5 headache started today patient is probably getting used to her new blood pressure medication Will monitor till tomorrow Will follow in a.m. possible discharge to home in am
[2016-10-29 16:48] LABS: Glucose,Whole Blood 152 mg/dL (75-99)
[2016-10-29 20:49] LABS: Glucose,Whole Blood 256 mg/dL (75-99)
[2016-10-29] MEDS: ATORVASTATIN 40 MG TAB PO SCH (21:38)
[2016-10-29] MEDS: MONTELUKAST 10 MG TAB PO SCH (21:38)
[2016-10-29] MEDS: traZODone HCL 100 MG TAB PO SCH (21:38)
[2016-10-30 06:14] LABS: Glucose,Whole Blood 177 mg/dL (75-99)
[2016-10-30 06:39] LABS: Basophils # (A) 0.1 k/uL (0-0.2); Basophils % (A) 1 %; CHCM 33.6; Eosinophils # (A) 0.2 k/uL (0-0.7); Eosinophils % (A) 4 %; HCT 44.7 % (34.0-46.0); HGB 14.7 gm/dL (11.4-16.0); Luc # (Auto) 0.12; Luc % (Auto) 2; Lymphocytes # (A) 1.5 k/uL (1.0-4.8); Lymphocytes % (A) 28 %; MCH 31.5 pg (25.0-35.0); MCHC 32.9 g/dL (31.0-37.0); MCV 95.7 fL (80.0-100.0); Mean Platelet Volume 7.9; Monocytes # (A) 0.4 k/uL (0-1.0); Monocytes % (A) 7 %; Neutrophils % (A) 58 %; RBC 4.67 m/uL (3.80-5.40); RDW 13.1 % (11.5-15.5); WBC 5.3 k/uL (3.8-10.6)
[2016-10-30 06:48] LABS: ALT 94 U/L (9-52); AST 80 U/L (14-36); Alkaline Phosphatase 94 U/L (38-126); Anion Gap 12 mmol/L; Blood Urea Nitrogen 17 mg/dL (7-17); Calcium 9.7 mg/dL (8.4-10.2); Carbon Dioxide 31 mmol/L (22-30); Chloride 95 mmol/L (98-107); Glucose 176 mg/dL (74-99); Non-African American GFR(MDRD) >60 (>60 ml/min/1.73 sqM); Sodium 138 mmol/L (137-145); Total Bilirubin 1.3 mg/dL (0.2-1.3)
[2016-10-30] MEDS: LEVOTHYROXINE 88 MCG TAB PO SCH (06:52)
[2016-10-30] MEDS: PANTOPRAZOLE 40 MG TABLET PO SCH (06:53)
[2016-10-30] MEDS: INSULIN LISPRO (humaLOG) 300 UNIT/3 ML VIAL SQ SCH ×4 (06:53→21:21)
[2016-10-30] MEDS: CARVEDILOL 12.5 MG TAB PO SCH ×2 (06:53→17:16)
[2016-10-30] MEDS: MELOXICAM 7.5 MG TAB PO SCH (07:39)
[2016-10-30] MEDS: ENOXAPARIN 40 MG/0.4 ML SYRINGE SQ SCH (07:39)
[2016-10-30] MEDS: LISINOPRIL 20 MG TAB PO SCH (07:40)
[2016-10-30] MEDS: ASPIRIN 81 MG CHEW PO SCH (07:40)
[2016-10-30] MEDS: amLODIPine 5 MG TAB PO SCH (07:40)
[2016-10-30] MEDS: HYDROCHLOROTHIAZIDE 25 MG TAB PO SCH (07:40)
[2016-10-30] MEDS: traMADol 50 MG TAB PO PRN ×2 (09:52→23:26)
[2016-10-30] MEDS ORDERED: ONDANSETRON 4 MG/2 ML VIAL IVP PRN (10:05)
[2016-10-30] MEDS ORDERED: ACETAMINOPHEN TAB 325 MG TAB PO PRN (11:24)
--- NOTE | 2016-10-30 11:25 | P.PN ---
Subjective Patient is complaining of severe headache today that she rates as 10 out of 10. Her headache is associated with a lot of nausea. Blood pressure still elevated this morning but within acceptable range. Her blood pressure regimen was adjusted. Objective - Vital Signs Vital signs: Vital Signs Temp 97 F L 10/30/16 11:06 Pulse 75 10/30/16 11:06 Resp 18 10/30/16 11:06 BP 135/86 10/30/16 11:06 Pulse Ox 93 L 10/30/16 11:06 Intake & Output 10/29/16 10/30/16 10/30/16 18:59 06:59 18:59 Output Total 800 Balance -800 Weight 110.4 kg Output: Urine 800 Other: Voiding Method Toilet - Exam General: The patient is awake and alert, in no distress Eye: there is normal conjunctiva bilaterally. Neck: The neck is supple, there is no JVD. Cardiovascular: Normal S1-S2, no S3-S4, no murmurs. Respiratory: Lungs clear to auscultation bilaterally Gastrointestinal: Abdomen is soft, nontender Musculoskeletal: There is no pedal edema. Neurological:. Speech is normal. Skin: Skin is warm and dry - Labs CBC & Chem 7: 10/30/16 05:54 10/30/16 05:52 Labs: Abnormal Lab Results - Last 24 Hours (Table) 10/29/16 10/29/16 10/29/16 Range/Units 11:37 16:46 20:48 Chloride (98-107) mmol/L Carbon Dioxide (22-30) mmol/L Glucose (74-99) mg/dL POC Glucose (mg/dL) 224 H 152 H 256 H (75-99) mg/dL AST (14-36) U/L ALT (9-52) U/L 10/30/16 10/30/16 Range/Units 05:52 06:13 Chloride 95 L (98-107) mmol/L Carbon Dioxide 31 H (22-30) mmol/L Glucose 176 H (74-99) mg/dL POC Glucose (mg/dL) 177 H (75-99) mg/dL AST 80 H (14-36) U/L ALT 94 H (9-52) U/L Assessment and Plan Plan: #1 hypertensive emergency on presentation #2 episodes of chest pain, now resolved. No evidence of ACS. Seen and evaluated by cardiology. Echocardiogram was within normal range. #3 hyperlipidemia patient was started on Lipitor #4 hypothyroidism continue with Synthroid #5 persistent headache Would obtain computed tomography scan of the head given persistent headache despite better control of her blood pressure. IV Zofran as needed. Lab work reviewed today. Order Tylenol when necessary as patient only getting tramadol for her headache.
[2016-10-30 11:36] LABS: Glucose,Whole Blood 178 mg/dL (75-99)
--- NOTE | 2016-10-30 13:10 | CT ---
EXAMINATION TYPE: CT brain wo con DATE OF EXAM: 10/30/2016 1:05 PM COMPARISON: NONE HISTORY: Headache with visual disturbance CT DLP: 1019.2 mGycm Automated exposure control for dose reduction was used. FINDINGS: Central structures are midline. There is no evidence of hydrocephalus. No acute focal lesion, mass ef fect or midline shift is seen. I do not see evidence of intracranial blood. There is some diffuse per iventricular white matter lucency suggesting chronic ischemic change. There is some mild mucoperiosteal thickening involving the ethmoid sinuses. No depressed skull fractu re is seen. IMPRESSION: 1. NO ACUTE INTRACRANIAL ABNORMALITY. 2. CHRONIC WHITE MATTER ISCHEMIC CHANGE.
--- NOTE | 2016-10-30 13:30 | P.PN ---
Subjective Principal diagnosis: Hypertension and associated headache This is a pleasant 61-year-old female who presented to the hospital with symptoms of chest tightness as well as headache, she was found to have uncontrolled hypertension and medication adjustments have been made. Her blood pressure today is under much better control, states that her headache has improved significantly although still has some mild headache this morning. She denies any further chest discomfort. Troponins and EKGs were essentially normal. Blood pressure today 134/86 with a heart rate in the 70s. CT of the brain performed this morning did not reveal any acute intracranial abnormality. Objective - Vital Signs Vital signs: Vital Signs Temp 97 F L 10/30/16 11:06 Pulse 75 10/30/16 11:06 Resp 18 10/30/16 11:06 BP 135/86 10/30/16 11:06 Pulse Ox 93 L 10/30/16 11:06 Intake & Output 10/29/16 10/30/16 10/30/16 18:59 06:59 18:59 Intake Total 480 Output Total 800 Balance -800 480 Weight 110.4 kg Intake: Oral 480 Output: Urine 800 Other: Voiding Method Toilet - Exam PHYSICAL EXAMINATION: HEENT: [Head is atraumatic, normocephalic. Pupils equal, round. Neck is supple. There is no elevated jugular venous pressure.]Complaining of mild headache HEART EXAMINATION: [Heart S1, S2 normal. No murmur or gallop heard.] CHEST EXAMINATION:[ Lungs are clear to auscultation and precussion. No chest wall tenderness is noted on palpation or with deep breathing.] ABDOMEN: [ Soft, nontender. Bowel sounds are heard. No organomegaly noted]. EXTREMITIES:[ 2+ peripheral pulses with no evidence of peripheral edema and no calf tenderness noted]. NEUROLOGIC [patient is awake, alert and oriented -3.] . - Labs CBC & Chem 7: 10/30/16 05:54 10/30/16 05:52 Labs: Abnormal Lab Results - Last 24 Hours (Table) 10/29/16 10/29/16 10/30/16 Range/Units 16:46 20:48 05:52 Chloride 95 L (98-107) mmol/L Carbon Dioxide 31 H (22-30) mmol/L Glucose 176 H (74-99) mg/dL POC Glucose (mg/dL) 152 H 256 H (75-99) mg/dL AST 80 H (14-36) U/L ALT 94 H (9-52) U/L 10/30/16 10/30/16 Range/Units 06:13 11:35 Chloride (98-107) mmol/L Carbon Dioxide (22-30) mmol/L Glucose (74-99) mg/dL POC Glucose (mg/dL) 177 H 178 H (75-99) mg/dL AST (14-36) U/L ALT (9-52) U/L Assessment and Plan Plan: Assessment and plan #1 hypertensive urgency, blood pressure this morning 135/80. #2 symptoms of intermittent chest discomfort, with some atypical features. Troponins negative 2. EKG shows normal sinus rhythm with a right bundle branch block and nonspecific ST-T wave changes. #3 history of hypertension #4 diabetes, not treated as an outpatient. #5 hyperlipidemia #6 asthma #7 arthritis #8 fibromyalgia #9 hypothyroidism #10 obesity Plan From cardiology's perspective, patient may be able to be discharged home. We' ll make her a follow-up appointment with Dr. Mcpherson in the office post discharge. An outpatient stress test will be performed. Every for letting us participate in the care of this nice lady. DNP note has been reviewed, I agree with a documented findings and plan of care. Patient was seen and examined.
[2016-10-30] MEDS: MULTIVITAMINS, THERA 1 EACH TAB PO SCH (13:47)
[2016-10-30 16:28] LABS: Glucose,Whole Blood 182 mg/dL (75-99)
[2016-10-30 20:33] LABS: Glucose,Whole Blood 203 mg/dL (75-99)
[2016-10-30] MEDS: MONTELUKAST 10 MG TAB PO SCH (21:20)
[2016-10-30] MEDS: ATORVASTATIN 40 MG TAB PO SCH (21:20)
[2016-10-30] MEDS: traZODone HCL 100 MG TAB PO SCH (21:21)
[2016-10-31 05:40] LABS: Glucose,Whole Blood 167 mg/dL (75-99)
[2016-10-31] MEDS: LEVOTHYROXINE 88 MCG TAB PO SCH (06:33)
[2016-10-31] MEDS: traMADol 50 MG TAB PO PRN (06:33)
[2016-10-31] MEDS: CARVEDILOL 12.5 MG TAB PO SCH (06:33)
[2016-10-31] MEDS: INSULIN LISPRO (humaLOG) 300 UNIT/3 ML VIAL SQ SCH ×2 (06:33→12:37)
[2016-10-31] MEDS: PANTOPRAZOLE 40 MG TABLET PO SCH (06:33)
[2016-10-31 06:47] LABS: Basophils % (A) 1 %; CHCM 33.3; Eosinophils # (A) 0.2 k/uL (0-0.7); Eosinophils % (A) 3 %; HCT 44.5 % (34.0-46.0); HDW 2.94; HGB 14.6 gm/dL (11.4-16.0); Luc # (Auto) 0.17; Luc % (Auto) 3; Lymphocytes # (A) 1.3 k/uL (1.0-4.8); Lymphocytes % (A) 25 %; MCH 31.7 pg (25.0-35.0); MCHC 32.8 g/dL (31.0-37.0); MCV 96.7 fL (80.0-100.0); Mean Platelet Volume 8.1; Monocytes # (A) 0.4 k/uL (0-1.0); Monocytes % (A) 7 %; Neutrophils # (A) 3.3 k/uL (1.3-7.7); Neutrophils % (A) 61 %; RDW 13.1 % (11.5-15.5); WBC 5.4 k/uL (3.8-10.6)
[2016-10-31 06:57] LABS: ALT 99 U/L (9-52); AST 83 U/L (14-36); Alkaline Phosphatase 93 U/L (38-126); Anion Gap 11 mmol/L; Blood Urea Nitrogen 20 mg/dL (7-17); Calcium 9.4 mg/dL (8.4-10.2); Carbon Dioxide 30 mmol/L (22-30); Chloride 95 mmol/L (98-107); Glucose 183 mg/dL (74-99); Non-African American GFR(MDRD) >60 (>60 ml/min/1.73 sqM); Potassium 4.7 mmol/L (3.5-5.1); Sodium 136 mmol/L (137-145); Total Bilirubin 1.2 mg/dL (0.2-1.3)
[2016-10-31] MEDS: MELOXICAM 7.5 MG TAB PO SCH (08:09)
[2016-10-31] MEDS: ENOXAPARIN 40 MG/0.4 ML SYRINGE SQ SCH (08:09)
[2016-10-31] MEDS: ASPIRIN 81 MG CHEW PO SCH (08:10)
[2016-10-31 11:02] LABS: Glucose,Whole Blood 214 mg/dL (75-99)
[2016-10-31 11:25] VITALS: BP 122/74; PULSE 74; RESP 16; TEMP 97.6
[2016-10-31] MEDS: LISINOPRIL 20 MG TAB PO SCH (12:31)
[2016-10-31] MEDS: HYDROCHLOROTHIAZIDE 25 MG TAB PO SCH (12:31)
[2016-10-31] MEDS: MULTIVITAMINS, THERA 1 EACH TAB PO SCH (12:31)
[2016-10-31] MEDS: amLODIPine 5 MG TAB PO SCH (12:32)
--- NOTE | 2016-10-31 13:53 | P.DS ---
Providers Date of admission: 10/26/16 18:32 Expected date of discharge: 10/31/16 Attending physician: Kvng Boo Consults: 10/27/16 13:35 Consult Physician Routine Consulting Provider: Topher Mendez Consult Reason/Comments: hypertension urgency, chest pain Do you want consulting provider notified?: Yes [facility] [place] Course: This is a 61-year-old female with past medical history noted below who presented to the hospital with worsening headache and not feeling well. Patient was found to be hypertensive emergency and was reporting chest discomfort. She was seen and evaluated by cardiology. No evidence of acute coronary syndrome. Patient underwent an echocardiogram that was within normal range. She was complaining of persistent headache and computed tomography scan of the brain showed no acute findings. Her blood pressure medication regimen was adjusted and blood pressure was well controlled. She will be discharged in stable condition. She was advised to follow-up with her milling machine operator to update her prescription [place]. Below is a list of her medical problems addressed during this hospitalization. #1 hypertensive emergency on presentation #2 episodes of chest pain, now resolved. No evidence of ACS. Seen and evaluated by cardiology. Echocardiogram was within normal range. #3 hyperlipidemia patient was started on Lipitor #4 hypothyroidism continue with Synthroid #5 persistent headache Patient Condition at Discharge: Stable Plan - Discharge Summary New Discharge Prescriptions: Aspirin 81 mg PO DAILY #30 chew Carvedilol [Coreg*] 12.5 mg PO BID-W/MEALS #60 tab Lisinopril [Prinivil] 10 mg PO DAILY #30 tab Discharge Medication List Albuterol Inhaler [Ventolin Hfa Inhaler] 1 - 2 puff INHALATION RT-QID PRN [History] Albuterol Nebulized [Ventolin Nebulized] 2.5 mg INHALATION RT-QID PRN 10/26/16 [ History] Bumetanide [BUMEX] 0.25 mg PO DAILY PRN 10/26/16 [History] Fluticasone Nasal [place] [Flonase Nasal [place]] 2 spr EA NOSTRIL HS 10/26/16 [ History] Levothyroxine Sodium [Synthroid] 175 mcg PO DAILY 10/26/16 [History] Meloxicam [Mobic] 15 mg PO DAILY 10/26/16 [History] Montelukast Sodium [Singulair] 10 mg PO HS 10/26/16 [History] Multivitamins, Thera [Multivitamin (formulary)] 1 tab PO DAILY 10/26/16 [History ] Omeprazole [PriLOSEC] 20 mg PO AC-BRKFST 10/26/16 [History] Polyethylene Glycol 3350 [Miralax] 17 gm PO DAILY PRN 10/26/16 [History] Simvastatin [Zocor] 10 mg PO HS 10/26/16 [History] traMADol HCl [Ultram] 50 mg PO TID PRN 10/26/16 [History] traZODone HCL [Desyrel] 150 mg PO HS 10/26/16 [History] Aspirin 81 mg PO DAILY #30 chew 10/31/16 [Rx] Carvedilol [Coreg*] 12.5 mg PO BID-W/MEALS #60 tab 10/31/16 [Rx] Lisinopril [Prinivil] 10 mg PO DAILY #30 tab 10/31/16 [Rx] Follow up Appointment(s)/Referral(s): Arya Mcpherson MD [STAFF PHYSICIAN] - 3 Weeks Madisyn Castaneda MD [Primary Care Provider] - 1-2 days Discharge Disposition: HOME SELF-CARE
--- NOTE | 2016-10-31 14:43 | P.PN ---
Subjective Principal diagnosis: Hypertension and associated headache This is a pleasant 61-year-old female who presented to the hospital with symptoms of chest tightness as well as headache, she was found to have uncontrolled hypertension and medication adjustments have been made. Her blood pressure today is under much better control, states that her headache has improved significantly although still has some mild headache this morning. She denies any further chest discomfort. Troponins and EKGs were essentially normal. Blood pressure today 124/86 with a heart rate in the 70s. Blood pressure did go down to 106/65. We will discontinue the Norvasc today. Objective - Vital Signs Vital signs: Vital Signs Temp 97.6 F 10/31/16 11:24 Pulse 74 10/31/16 11:24 Resp 16 10/31/16 11:24 BP 122/74 10/31/16 11:24 Pulse Ox 91 L 10/31/16 11:24 Intake & Output 10/30/16 10/31/16 10/31/16 18:59 06:59 18:59 Intake Total 720 180 Output Total 600 500 100 Balance 120 -500 80 Weight 110.9 kg Intake: Oral 720 180 Output: Urine 600 500 100 Other: Voiding Method Toilet Toilet # Voids 1 - Exam PHYSICAL EXAMINATION: HEENT: [Head is atraumatic, normocephalic. Pupils equal, round. Neck is supple. There is no elevated jugular venous pressure.]Complaining of mild headache HEART EXAMINATION: [Heart S1, S2 normal. No murmur or gallop heard.] CHEST EXAMINATION:[ Lungs are clear to auscultation and precussion. No chest wall tenderness is noted on palpation or with deep breathing.] ABDOMEN: [ Soft, nontender. Bowel sounds are heard. No organomegaly noted]. EXTREMITIES:[ 2+ peripheral pulses with no evidence of peripheral edema and no calf tenderness noted]. NEUROLOGIC [patient is awake, alert and oriented -3.] . - Labs CBC & Chem 7: 10/31/16 06:23 10/31/16 06:23 Labs: Abnormal Lab Results - Last 24 Hours (Table) 10/30/16 10/30/16 10/31/16 Range/Units 16:27 20:31 05:39 Sodium (137-145) mmol/L Chloride (98-107) mmol/L BUN (7-17) mg/dL Glucose (74-99) mg/dL POC Glucose (mg/dL) 182 H 203 H 167 H (75-99) mg/dL AST (14-36) U/L ALT (9-52) U/L 10/31/16 10/31/16 Range/Units 06:23 11:01 Sodium 136 L (137-145) mmol/L Chloride 95 L (98-107) mmol/L BUN 20 H (7-17) mg/dL Glucose 183 H (74-99) mg/dL POC Glucose (mg/dL) 214 H (75-99) mg/dL AST 83 H (14-36) U/L ALT 99 H (9-52) U/L Assessment and Plan Plan: Assessment and plan #1 hypertensive urgency, blood pressure this morning 124/80. #2 symptoms of intermittent chest discomfort, with some atypical features. Troponins negative 3. EKG shows normal sinus rhythm with a right bundle branch block and nonspecific ST-T wave changes. #3 history of hypertension #4 diabetes, not treated as an outpatient. #5 hyperlipidemia #6 asthma #7 arthritis #8 fibromyalgia #9 hypothyroidism #10 obesity Plan Cardiology's perspective, we'll discontinue the Norvasc today. We'll follow this patient with you now on an as-needed basis only, please don't hesitate to call with any questions. DNP note has been reviewed, I agree with a documented findings and plan of care. Patient was seen and examined.
== END 2016-10-31 15:20 | disposition home or self-care (01) | DRG 305 ==
LOC: EC 12:21 → 6SEL 18:32
PROVIDERS: ADMIT Internal Medicine; ATTEND Internal Medicine
DX: I16.0 Hypertensive urgency (principal); Z68.41 Body mass index [BMI] 40.0-44.9, adult; E66.9 Obesity, unspecified; I10 Essential (primary) hypertension; E11.9 Type 2 diabetes mellitus without complications; E03.9 Hypothyroidism, unspecified; I45.10 Unspecified right bundle-branch block; M19.91 Primary osteoarthritis, unspecified site; M79.7 Fibromyalgia; J45.909 Unspecified asthma, uncomplicated; E78.5 Hyperlipidemia, unspecified; G89.29 Other chronic pain; M54.2 Cervicalgia; M54.9 Dorsalgia, unspecified; Z90.49 Acquired absence of other specified parts of digestive tract; Z86.59 Personal history of other mental and behavioral disorders; Z90.710 Acquired absence of both cervix and uterus; Z79.1 Long term (current) use of non-steroidal anti-inflammatories (NSAID); Z79.899 Other long term (current) drug therapy; Z82.49 Family history of ischemic heart disease and other diseases of the circulatory system
CPT/HCPCS: 36415; 70450; 80053; 80061; 83036; 84484; 85025; 93005; 93306; 94640; 96374; 96375; 96376; 99285

== ENCOUNTER 2020-01-05 22:17 | Observation (INO) | payer MEDICARE ==
[2020-01-05 23:49] LABS: ALT 22 U/L (4-34); AST 35 U/L (14-36); African American GFR (CKD) >90 (>60 ml/min/1.73 sqM); Albumin 4.3 g/dL (3.5-5.0); Alkaline Phosphatase 68 U/L (38-126); Anion Gap 8 mmol/L; Blood Urea Nitrogen 17 mg/dL (7-17); Calcium 9.7 mg/dL (8.4-10.2); Carbon Dioxide 25 mmol/L (22-30); Chloride 106 mmol/L (98-107); Glucose 217 mg/dL (74-99); Magnesium 1.8 mg/dL (1.6-2.3); Non-African American GFR(CKD) 81 (>60 ml/min/1.73 sqM); Sodium 139 mmol/L (137-145); Total Bilirubin 0.6 mg/dL (0.2-1.3); Total Protein 7.4 g/dL (6.3-8.2)
[2020-01-05 23:50] LABS: Potassium 4.8 mmol/L (3.5-5.1)
[2020-01-05 23:59] LABS: Partial Thromboplastin Time 23.8 sec (22.0-30.0)
[2020-01-06] LABS: HCT 45.8 % (34.0-46.0); HGB 15.3 gm/dL (11.4-16.0); MCH 32.8 pg (25.0-35.0); MCHC 33.4 g/dL (31.0-37.0); MCV 98.3 fL (80.0-100.0); Mean Platelet Volume 8.6; Platelet Count 200 k/uL (150-450); RBC 4.66 m/uL (3.80-5.40); RDW 12.7 % (11.5-15.5); WBC 4.9 k/uL (3.8-10.6)
--- NOTE | 2020-01-06 00:09 | XR ---
EXAMINATION TYPE: XR chest 2V DATE OF EXAM: 01/05/2020 COMPARISON: 05/27/2011 HISTORY: Dysrhythmia. Short of breath TECHNIQUE: FINDINGS: Heart and mediastinum are normal. Lungs are clear of infiltrate. There is no heart failure. There are no hilar masses. There is no evidence of pleural effusion. There are chest leads. IMPRESSION: No active cardiopulmonary disease. No change.
[2020-01-06] MEDS ORDERED: HEPARIN SODIUM,PORCINE 5,000 UNIT/ML 1 ML VIAL IV PRN (00:32)
[2020-01-06] MEDS ORDERED: HEPARIN SODIUM,PORCINE 5,000 UNIT/ML 1 ML VIAL IV ONE (00:32)
[2020-01-06 00:37] LABS: Eosinophils # (M) 0.15 k/uL (0-0.7); Lymphocytes # (M) 2.11 k/uL (1.0-4.8); Monocytes # (M) 0.05 k/uL (0-1.0); Neutrophils % (M) 53 %; Nucleated Red Blood Cells 0 /100 WBC (0-0); Total Cells Counted 100
[2020-01-06] MEDS ORDERED: DILTIAZEM CD 120 MG CAP.ER.24H PO STA (00:39)
--- NOTE | 2020-01-06 00:44 | ED ---
General Adult HPI - General Source: patient Mode of arrival: wheelchair Limitations: no limitations <Taryn Howard - Last Filed: 01/06/20 00:51> <Jamie Snowden - Last Filed: 01/07/20 07:48> - General Chief complaint: Recheck/Abnormal Lab/Rx Stated complaint: Low BP Time Seen by Provider: 01/05/20 22:29 - History of Present Illness Initial comments: 64-year-old female patient presents to the emergency department today for evaluation of decreased blood pressure and irregular heartbeat. Patient states that when she woke up this afternoon around 3 PM she took her blood pressure because she was not feeling well. States the blood pressure was low around 90 systolic and her heart rate was around 45 and it read irregular. Patient states she proceeded to check her blood pressure throughout the day, her blood pressure did improve however her heartbeat continue to say irregular. States that she has been having some mild shortness of breath recently. States that she's also been experiencing edema to the lower extremities. Patient states she does have history of high blood pressure she does take benazepril, Norvasc, and carvedilol. Patient has been taking the medications as directed. Patient denies any recent rash, fever, chills, cough, chest pain, abdominal pain, nausea, vomiting, diarrhea, constipation, back pain, numbness, tingling, dizziness, weakness, hematuria, dysuria, urinary urgency, urinary frequency, headache, visual changes, or any other complaints. (Taryn Howard) - Related Data Home Medications Medication Instructions Recorded Confirmed Bumetanide [BUMEX] 0.5 mg PO DAILY PRN 10/26/16 01/06/20 Fluticasone Nasal [place] [Flonase 1 spr EA NOSTRIL HS 10/26/16 01/06/20 Nasal [place]] Montelukast Sodium [Singulair] 10 mg PO HS 10/26/16 01/06/20 Multivitamins, Thera [Multivitamin 1 tab PO DAILY 10/26/16 01/06/20 (formulary)] Omeprazole [PriLOSEC] 20 mg PO AC-BRKFST 10/26/16 01/06/20 Simvastatin [Zocor] 10 mg PO HS 10/26/16 01/06/20 traZODone HCL [Desyrel] 150 mg PO HS 10/26/16 01/06/20 Benazepril HCl 20 mg PO DAILY 01/06/20 01/06/20 Carvedilol 25 mg PO BID 01/06/20 01/06/20 Levothyroxine Sodium 137 mcg PO DAILY 01/06/20 01/06/20 Olopatadine HCl 1 drop BOTH EYES BID PRN 01/06/20 01/06/20 amLODIPine [Norvasc] 10 mg PO DAILY 01/06/20 01/06/20 buPROPion XL [Wellbutrin Xl] 300 mg PO DAILY 01/06/20 01/06/20 glipiZIDE XL [Glucotrol Xl] 5 mg PO DAILY 01/06/20 01/06/20 Previous Rx's Medication Instructions Recorded Aspirin 81 mg PO DAILY #30 chew 10/31/16 Allergies Allergy/AdvReac Type Severity Reaction Status Date / Time amoxicillin [From Augmentin] Allergy Unknown Verified 01/06/20 08:37 milk Allergy Nausea & Verified 01/06/20 08:37 Vomiting & Diarrhea sulfamethoxazole Allergy Unknown Verified 01/06/20 08:37 [From Bactrim] Review of Systems ROS Other: All systems not noted in ROS Statement are negative. <Taryn Howard - Last Filed: 01/06/20 00:51> ROS Other: All systems not noted in ROS Statement are negative. <Jamie Snowden - Last Filed: 01/07/20 07:48> ROS Statement: Those systems with pertinent positive or pertinent negative responses have been documented in the HPI. Past Medical History Past Medical History: Asthma, Chest Pain / Angina, Diabetes Mellitus, Fibromyalgia, Hyperlipidemia, Hypertension, Osteoarthritis (OA), Thyroid Disorder Additional Past Medical History / Comment(s): borderline diabetic, not on any meds, hypothyroid, anemia, IBS History of Any Multi-Drug Resistant Organisms: None Reported Past Surgical History: Cholecystectomy, Hysterectomy, Tonsillectomy Additional Past Surgical History / Comment(s): Had to open up after gall bladder to remove stone, L breast biopsy Past Anesthesia/Blood Transfusion Reactions: No Reported Reaction Additional Past Anesthesia/Blood Transfusion Reaction / Comment(s): Sickness with morphine Past Psychological History: Anxiety, Depression Smoking Status: Never smoker Past Alcohol Use History: None Reported Past Drug Use History: None Reported - Past Family History Mother Family Medical History: Congestive Heart Failure (CHF), Diabetes Mellitus, Hypertension Additional Family Medical History / Comment(s): from CHF Father Additional Family Medical History / Comment(s): Emphysema <Taryn Howard M - Last Filed: 01/06/20 00:51> General Exam Limitations: no limitations General appearance: alert, in no apparent distress, other (Physical well- developed, well-nourished adult female patient in no acute distress. Vital signs upon presentation are temperature 98.2F, pulse 91, respirations 18, blood pressure 125/83, pulse ox 95% on room air.) Eye exam: Present: normal appearance, PERRL, EOMI. Absent: scleral icterus, conjunctival injection, periorbital swelling ENT exam: Present: normal exam, normal oropharynx, mucous membranes moist Respiratory exam: Present: normal lung sounds bilaterally. Absent: respiratory distress, wheezes, rales, rhonchi, stridor Cardiovascular Exam: Present: regular rate, irregular rhythm, normal heart sounds. Absent: systolic murmur, diastolic murmur, rubs, gallop, clicks GI/Abdominal exam: Present: soft, normal bowel sounds. Absent: distended, tenderness, guarding, rebound, rigid Neurological exam: Present: alert, oriented X3, CN II-XII intact Psychiatric exam: Present: normal affect, normal mood Skin exam: Present: warm, dry, intact, normal color. Absent: rash <Taryn Howard M - Last Filed: 01/06/20 00:51> Course Vital Signs 01/05/20 01/06/20 01/06/20 22:19 01:23 05:37 Temperature 98.2 F Pulse Rate 91 92 97 Pulse Rate [ [employer] ] Respiratory 18 16 16 Rate Blood Pressure 125/83 143/98 135/94 Blood Pressure [Right Arm] O2 Sat by Pulse 95 94 L 95 Oximetry 01/06/20 01/06/20 01/06/20 07:37 08:00 11:50 Temperature 97 F L 97 F L Pulse Rate Pulse Rate [ 110 H 110 H 109 H [employer] ] Respiratory 16 16 18 Rate Blood Pressure Blood Pressure 121/86 129/109 [Right Arm] O2 Sat by Pulse 97 97 Oximetry 01/06/20 01/06/20 12:00 14:37 Temperature Pulse Rate Pulse Rate [ 96 [employer] ] Respiratory 18 Rate Blood Pressure Blood Pressure 126/85 [Right Arm] O2 Sat by Pulse 97 Oximetry EKG Findings - EKG Comments: EKG Findings:: EKG obtained at 2324 shows atrial fibrillation with a ventricular rate of 98, QRS duration 126, QT 378, QTC 482. There is also evidence for right bundle branch block which does appear consistent with her previous EKG here. <Taryn Howard - Last Filed: 01/06/20 00:51> Medical Decision Making - Lab Data Result diagrams: 01/05/20 23:20 01/05/20 23:20 - Radiology Data Radiology results: report reviewed, image reviewed <Taryn Howard - Last Filed: 01/06/20 00:51> - Lab Data Result diagrams: 01/05/20 23:20 01/05/20 23:20 <Jamie Snowden - Last Filed: 01/07/20 07:48> - Medical Decision Making 64 year-old female patient presents to the emergency department today reporting low blood pressure and irregular heartbeat. Physical examination was unremarkable, lungs are clear to auscultation with good air movement. Labs r eviewed and did reveal elevated BNP at 1100. Troponin negative. EKG did show atrial fibrillation. Patient does not have history of A. fib. She does currently take a beta jacob, benazepril, and Norvasc. Heart rate was between 80 and 105, we will withhold Cardizem at this time. We'll start heparin. She'll be admitted to the hospital for further evaluation by cardiology. (Taryn Howrad) I saw this patient in conjunction with the physician human resources office assistant. I performed independent history and physical exam. Agree with case management. (Jamie Snowden) - Lab Data Lab Results 01/05/20 01/05/20 01/05/20 Range/Units 23:20 23:20 23:20 WBC 4.9 (3.8-10.6) k/uL RBC 4.66 (3.80-5.40) m/uL Hgb 15.3 (11.4-16.0) gm/dL Hct 45.8 (34.0-46.0) % MCV 98.3 (80.0-100.0) fL MCH 32.8 (25.0-35.0) pg MCHC 33.4 (31.0-37.0) g/dL RDW 12.7 (11.5-15.5) % Plt Count 200 (150-450) k/uL Neutrophils % (Manual) 53 % Lymphocytes % (Manual) 43 % Monocytes % (Manual) 1 % Eosinophils % (Manual) 3 % Neutrophils # (Manual) 2.60 (1.3-7.7) k/uL Lymphocytes # (Manual) 2.11 (1.0-4.8) k/uL Monocytes # (Manual) 0.05 (0-1.0) k/uL Eosinophils # (Manual) 0.15 (0-0.7) k/uL Nucleated RBCs 0 (0-0) /100 WBC Manual Slide Review Performed RBC Morphology Normal PT 10.0 (9.0-12.0) sec INR 1.0 (<1.2) APTT 23.8 (22.0-30.0) sec Sodium 139 (137-145) mmol/L Potassium 4.8 (3.5-5.1) mmol/L Chloride 106 (98-107) mmol/L Carbon Dioxide 25 (22-30) mmol/L Anion Gap 8 mmol/L BUN 17 (7-17) mg/dL Creatinine 0.77 (0.52-1.04) mg/dL Est GFR (CKD-EPI)AfAm >90 (>60 ml/min/1.73 sqM) Est GFR (CKD-EPI)NonAf 81 (>60 ml/min/1.73 sqM) Glucose 217 H (74-99) mg/dL Calcium 9.7 (8.4-10.2) mg/dL Magnesium 1.8 (1.6-2.3) mg/dL Total Bilirubin 0.6 (0.2-1.3) mg/dL AST 35 (14-36) U/L ALT 22 (4-34) U/L Alkaline Phosphatase 68 (38-126) U/L Troponin I (0.000-0.034) ng/mL NT-Pro-B Natriuret Pep pg/mL Total Protein 7.4 (6.3-8.2) g/dL Albumin 4.3 (3.5-5.0) g/dL TSH 0.997 (0.465-4.680) mIU/L Coronavirus (PCR) (Not Detected) 06/08/20 06/08/20 06/09/20 Range/Units 23:20 23:20 01:22 WBC (3.8-10.6) k/uL RBC (3.80-5.40) m/uL Hgb (11.4-16.0) gm/dL Hct (34.0-46.0) % MCV (80.0-100.0) fL MCH (25.0-35.0) pg MCHC (31.0-37.0) g/dL RDW (11.5-15.5) % Plt Count (150-450) k/uL Neutrophils % (Manual) % Lymphocytes % (Manual) % Monocytes % (Manual) % Eosinophils % (Manual) % Neutrophils # (Manual) (1.3-7.7) k/uL Lymphocytes # (Manual) (1.0-4.8) k/uL Monocytes # (Manual) (0-1.0) k/uL Eosinophils # (Manual) (0-0.7) k/uL Nucleated RBCs (0-0) /100 WBC Manual Slide Review RBC Morphology PT (9.0-12.0) sec INR (<1.2) APTT (22.0-30.0) sec Sodium (137-145) mmol/L Potassium (3.5-5.1) mmol/L Chloride (98-107) mmol/L Carbon Dioxide (22-30) mmol/L Anion Gap mmol/L BUN (7-17) mg/dL Creatinine (0.52-1.04) mg/dL Est GFR (CKD-EPI)AfAm (>60 ml/min/1.73 sqM) Est GFR (CKD-EPI)NonAf (>60 ml/min/1.73 sqM) Glucose (74-99) mg/dL Calcium (8.4-10.2) mg/dL Magnesium (1.6-2.3) mg/dL Total Bilirubin (0.2-1.3) mg/dL AST (14-36) U/L ALT (4-34) U/L Alkaline Phosphatase (38-126) U/L Troponin I <0.012 (0.000-0.034) ng/mL NT-Pro-B Natriuret Pep 1140 pg/mL Total Protein (6.3-8.2) g/dL Albumin (3.5-5.0) g/dL TSH (0.465-4.680) mIU/L Coronavirus (PCR) Not Detected (Not Detected) - Radiology Data Two-view x-ray of the chest was obtained. Report reviewed in its entirety. Impression by Dr. Lei shows no active cardiopulmonary disease. No change. (Taryn Howard) Disposition Decision to Admit Reason: Admit from EC Decision Date: 01/06/20 Decision Time: 00:44 <Taryn Howard - Last Filed: 01/06/20 00:51> <Jamie Snowden - Last Filed: 01/07/20 07:48> Clinical Impression: New onset a-fib Disposition: ADMITTED IP TO THIS HOSP Condition: Serious
[2020-01-06] MEDS ORDERED: ONDANSETRON 4 MG/2 ML VIAL IVP PRN (00:45)
[2020-01-06] MEDS ORDERED: NALOXONE 0.4 MG/ML 1 ML VIAL IV PRN (00:45)
[2020-01-06] MEDS: HEPARIN SOD,PORK IN 0.45% NACL 25,000 UNIT in 0.45% NACL 1 250ML.BAG IV SCH ×2 (01:14→22:35)
[2020-01-06] MEDS: SODIUM CHLORIDE 0.9% 1,000 ML IV SCH (01:17)
[2020-01-06 07:58] LABS: Glucose,Whole Blood 126 mg/dL (75-99)
[2020-01-06 11:55] LABS: Glucose,Whole Blood 178 mg/dL (75-99)
[2020-01-06] MEDS ORDERED: CARVEDILOL 12.5 MG TAB PO SCH (12:00)
[2020-01-06] MEDS ORDERED: ALPRAZolam 0.5 MG TAB PO PRN (12:03)
[2020-01-06] MEDS ORDERED: ASPIRIN 325 MG TAB PO STA (12:03)
[2020-01-06] MEDS ORDERED: ATORVASTATIN 80 MG TAB PO STA (12:03)
[2020-01-06] MEDS ORDERED: NITROGLYCERIN SL TABS 0.4 MG TAB SUBLINGUAL PRN (12:03)
[2020-01-06] MEDS ORDERED: ALPRAZolam 0.25 MG TAB PO PRN (12:03)
[2020-01-06] MEDS ORDERED: SODIUM CHLORIDE 0.9% 1,000 ML in EMPTY BAG 1 BAG IV ONE (12:03)
[2020-01-06] MEDS: METOPROLOL TARTRATE 50 MG TAB PO SCH ×2 (12:34→22:14)
[2020-01-06] MEDS: LISINOPRIL 20 MG TAB PO SCH (12:41)
[2020-01-06] MEDS: PANTOPRAZOLE 40 MG TABLET PO SCH (12:41)
[2020-01-06] MEDS: MULTIVITAMINS, THERA 1 EACH TAB PO SCH (12:41)
[2020-01-06] MEDS: LEVOTHYROXINE 137 MCG TAB PO SCH (12:54)
[2020-01-06] MEDS: buPROPion XL 300 MG TAB.ER.24H PO SCH (15:01)
--- NOTE | 2020-01-06 15:41 | CONS ---
CONSULTATION Mrs. Rich is a 64-year-old female with known history of hypertension, hyperlipidemia, diabetes mellitus, who has been complaining of progressive fatigue, shortness of breath, dizziness and irregular heartbeat. Her activity is limited because of her back discomfort, but she has noted that her blood pressure was quite labile and her heart rate was irregular. She came into the emergency room, was noted to be in atrial fibrillation of unknown duration. In 2017 she was in sinus mechanism. She has also been complaining of episodes of chest tightness, not activity-related, but she is quite limited in her activity. She has occasional peripheral edema. No PND. No orthopnea. No syncope. Her coronary risk factors are remarkable for hypertension, hyperlipidemia and diabetes. She is a non-smoker. MEDICATIONS: His medications at home include aspirin, Bumex, Singulair, Prilosec, simvastatin, amlodipine 10 mg daily, Desyrel, benazepril 20 mg daily, bupropion, Coreg 25 mg twice a day, glipizide 5 mg daily, levothyroxine and olopatadine eyedrops. REVIEW OF SYSTEMS: RESPIRATORY SYSTEM: She had dyspnea on exertion. No recent wheezing or cough. No fever. GI SYSTEM: No recent GI bleeding. No peptic ulcer disease. SYSTEM: No dysuria or hematuria. NERVOUS SYSTEM: No stroke or seizure. PHYSICAL EXAMINATION: She is a 64-year-old female, alert, oriented, in no apparent distress, overweight. Blood pressure is running in the 140s over 90 to the 120s. Heart rate in the 90s to 110. Afebrile. HEAD: Normocephalic. Eyes: Sclerae anicteric. NECK: Good carotid upstroke. No bruit. No jugular venous distention. LUNGS: Clear to auscultation. HEART: Irregularly irregular. S1, S2. No S3, with systolic ejection murmur heard at the base. No diastolic murmur. No rub. ABDOMEN: Soft, nontender. Obese. Positive bowel sounds. No organomegaly. EXTREMITIES: Trace edema. Intact distal pulses. LAB DATA: Lab data revealed troponin less than 0.012 for 3 samples. NT-proBNP of 1140. BUN and creatinine 17 and 0.77, potassium 4.8. Hemoglobin of 15.3. White blood cell count of 4.9. EKG revealed atrial fibrillation with a right bundle branch block, left axis deviation. Chest x-ray shows no acute infiltrate. IMPRESSION: 1. Atrial fibrillation; appears to be new onset, not documented in 2017. With episode of rapid ventricular response. 2. Chest discomfort of unclear etiology. No evidence of myocardial infarction. 3. Progressive dyspnea on exertion; could be related to the atrial fibrillation or physical deconditioning. 4. Labile blood pressure. 5. Hypertension. 6. Hyperlipidemia. 7. Diabetes mellitus. 8. Obesity. RECOMMENDATIONS: From the cardiac standpoint, I will obtain an echocardiogram with Doppler. I will switch her for now from carvedilol to metoprolol to control her rate and her blood pressure. I will follow her renal function. I would recommend proceeding with coronary angiography to further assess her status and guide her treatment. Depending on the testing, further recommendations will be made. Thank you for this consult. Will follow with you. ALBERTO / CORBY: [id number] /
[2020-01-06] MEDS ORDERED: BUMETANIDE 0.5 MG TABLET PO PRN (17:19)
[2020-01-06] MEDS ORDERED: KETOTIFEN 0.025% OPHTH DROPS 5 ML BTL BOTH EYES PRN (17:19)
--- NOTE | 2020-01-06 17:35 | P.HPIM ---
History of Present Illness H&P Date: 01/06/20 Chief Complaint: New onset Atrial Fibrillation Sana Rich is a 64-year-old female who presented to [facility] emergency room with symptoms of not feeling well and feeling lightheaded, she checked her blood pressure and her systolic blood pressure was in the 90, her heart rate was 45 and irregular, patient was also having episodes of feeling fatigued and having shortness of breath and some lower extremity edema , she was evaluated in the emergency room and had evidence of atrial fibrillation, which is a new diagnosis for her, she was started on IV heparin and was admitted to telemetry floor cardiology consultation was requested, patient has a known history of hypertension, hyperlipidemia, diabetes mellitus and obesity, her primary care physician is Dr. Castaneda. Patient was seen and examined on the telemetry floor, she is alert and oriented 3 in no apparent distress, she is maintained on IV heparin, her symptoms have subsided at this time, there is no fever or chills no headache or dizziness no chest pain no shortness of breath no cough no nausea or vomiting no abdominal pain no diarrhea, no blood in the stools, no burning was urination no frequency or urgency no hematuria. Past Medical History Past Medical History: Atrial Fibrillation, Asthma, Blood Disorder, Chest Pain / Angina, Diabetes Mellitus, Fibromyalgia, GERD/Reflux, Hyperlipidemia, Hypertension, Memory Impairment, Musculoskeletal Disorder, Osteoarthritis (OA), Pneumonia, Respiratory Disorder, Skin Disorder, Sleep Apnea/CPAP/BIPAP, Thyroid Disorder Additional Past Medical History / Comment(s): NIDDM type II, bilateral feet neuropathy once, bronchitis, arthritis in back/hands and knees, chronic back pain with disc problems/spur which she states affects walking, incontinence of urine, IBS, anemia, recurrent eye infections, vertigo with bending, pt thinks she has bilateral great toenail infections, hypothyroid excema History of Any Multi-Drug Resistant Organisms: None Reported Past Surgical History: Breast Surgery, Cholecystectomy, Hysterectomy, Orthopedic Surgery, Tonsillectomy Additional Past Surgical History / Comment(s): Bile duct stone removal after cholecystectomy, D&C, L breast biopsy, L carpal tunnel release, colonoscopy. Past Anesthesia/Blood Transfusion Reactions: No Reported Reaction Additional Past Anesthesia/Blood Transfusion Reaction / Comment(s): Sickness with morphine Past Psychological History: Anxiety, Depression Additional Psychological History / Comment(s): Pt resides with her spouse. She uses a cane to ambulate. She has a glucometer and a nebulizer. She can drive. Smoking Status: Never smoker Past Alcohol Use History: None Reported Past Drug Use History: None Reported - Past Family History Mother Family Medical History: Cancer, Congestive Heart Failure (CHF), Diabetes Mellitus, Hypertension Additional Family Medical History / Comment(s): Lymphoma Father Family Medical History: COPD Additional Family Medical History / Comment(s): Emphysema Medications and Allergies Home Medications Medication Instructions Recorded Confirmed Type Bumetanide [BUMEX] 0.5 mg PO DAILY PRN 10/26/16 01/06/20 History Fluticasone Nasal [place] [Flonase 1 spr EA NOSTRIL HS 10/26/16 01/06/20 History Nasal [place]] Montelukast Sodium [Singulair] 10 mg PO HS 10/26/16 01/06/20 History Multivitamins, Thera [Multivitamin 1 tab PO DAILY 10/26/16 01/06/20 History (formulary)] Omeprazole [PriLOSEC] 20 mg PO AC-BRKFST 10/26/16 01/06/20 History Simvastatin [Zocor] 10 mg PO HS 10/26/16 01/06/20 History traZODone HCL [Desyrel] 150 mg PO HS 10/26/16 01/06/20 History Aspirin 81 mg PO DAILY #30 chew 10/31/16 01/06/20 Rx Benazepril HCl 20 mg PO DAILY 01/06/20 01/06/20 History Carvedilol 25 mg PO BID 01/06/20 01/06/20 History Levothyroxine Sodium 137 mcg PO DAILY 01/06/20 01/06/20 History Olopatadine HCl 1 drop BOTH EYES BID PRN 01/06/20 01/06/20 History amLODIPine [Norvasc] 10 mg PO DAILY 01/06/20 01/06/20 History buPROPion XL [Wellbutrin Xl] 300 mg PO DAILY 01/06/20 01/06/20 History glipiZIDE XL [Glucotrol Xl] 5 mg PO DAILY 01/06/20 01/06/20 History Allergies Allergy/AdvReac Type Severity Reaction Status Date / Time amoxicillin [From Augmentin] Allergy Unknown Verified 01/06/20 08:37 milk Allergy Nausea & Verified 01/06/20 08:37 Vomiting & Diarrhea sulfamethoxazole Allergy Unknown Verified 01/06/20 08:37 [From Bactrim] Physical Exam Vitals: Vital Signs Temp Pulse Pulse Resp BP BP Pulse Ox 01/06/20 16:12 98.0 F 82 16 127/89 92 L 01/06/20 14:37 96 126/85 97 01/06/20 12:00 18 01/06/20 11:50 97 F L 109 H 18 129/109 97 01/06/20 08:00 110 H 16 01/06/20 07:37 97 F L 110 H 16 121/86 97 01/06/20 05:37 97 16 135/94 95 01/06/20 01:23 92 16 143/98 94 L 01/05/20 22:19 98.2 F 91 18 125/83 95 Intake and Output 01/06/20 01/06/20 01/06/20 06:59 14:59 22:59 Intake Total 715.371 112.274 Output Total 1 Balance 714.371 112.274 Intake: Intake, IV Titration 75.371 112.274 Amount Heparin Sod,Pork in 0.45% 75.371 112.274 NaCl 25,000 unit In 0.45 % NaCl 1 250ml.bag @ 8.93 UNITS/KG/HR 10.005 mls/ hr IV .Q24H [facility] Rx#: [id number] Oral 640 Output: Stool 1 Other: Voiding Method Toilet Toilet # Voids 1 # Bowel Movements 1 Weight 112.037 kg 112.037 kg In general patient is alert and oriented 3 in no apparent distress HEENT head normocephalic and atraumatic Neck is supple no JVD no goiter no lymphadenopathy Chest exam reveals a few scattered rhonchi bilaterally no wheezing Cardiac exam reveals irregular heart sounds S1 and S2 no gallops no murmurs Abdomen is soft nontender no organomegaly with normal bowel sounds Extremity exam reveals minimal edema no cyanosis or clubbing Neurological examination reveals no gross focal deficit Results CBC & Chem 7: 01/05/20 23:20 01/05/20 23:20 Labs: Abnormal Lab Results - Last 24 Hours (Table) 01/05/20 01/06/20 01/06/20 Range/Units 23:20 07:55 11:48 APTT (22.0-30.0) sec Glucose 217 H (74-99) mg/dL POC Glucose (mg/dL) 126 H 178 H (75-99) mg/dL 01/06/20 Range/Units 15:23 APTT 66.1 H (22.0-30.0) sec Glucose (74-99) mg/dL POC Glucose (mg/dL) (75-99) mg/dL Thrombosis Risk Factor Assmnt - Choose All That Apply Any of the Below Risk Factors Present?: Yes Each Factor Represents 1 point: Obesity (BMI >25) Other Risk Factors: Yes Each Risk Factor Represents 2 Points: Age 61-74 years Other congenital or acquired thrombophilia - If yes, enter type in comment: No Thrombosis Risk Factor Assessment Total Risk Factor Score: 3 Thrombosis Risk Factor Assessment Level: Moderate Risk Assessment and Plan Plan: 1. New onset atrial fibrillation, with episode of rapid ventricular response 2. Episode of chest discomfort, myocardial infarction ruled out 3. Episodes of shortness of breath 4. Underlying history of hypertension 5. Underlying history of hyperlipidemia 6. Underlying history of diabetes mellitus 7. Underlying history of morbid obesity At this time patient was started on IV heparin Cardiac medications are being adjusted, Coreg was discontinued patient was started on metoprolol Echocardiogram ordered awaiting results Cardiology input reviewed awaiting further recommendation Will follow closely
[2020-01-06] MEDS ORDERED: MONTELUKAST 10 MG TAB PO SCH (21:00)
[2020-01-06] MEDS ORDERED: FLUTICASONE 50MCG/SPRAY NASAL 16GM EA NOSTRIL SCH (21:00)
[2020-01-06] MEDS ORDERED: ATORVASTATIN 10 MG TAB PO SCH (21:00)
[2020-01-06] MEDS ORDERED: traZODone HCL 50 MG TAB PO SCH (21:00)
[2020-01-06 21:53] LABS: Glucose,Whole Blood 108 mg/dL (75-99)
[2020-01-07] MEDS: SODIUM CHLORIDE 0.9% 1,000 ML IV SCH (03:27)
[2020-01-07] MEDS: LEVOTHYROXINE 137 MCG TAB PO SCH (06:13)
[2020-01-07] MEDS: METOPROLOL TARTRATE 50 MG TAB PO SCH (06:13)
[2020-01-07] MEDS: LISINOPRIL 20 MG TAB PO SCH (06:13)
[2020-01-07] MEDS: PANTOPRAZOLE 40 MG TABLET PO SCH (06:13)
[2020-01-07] MEDS: buPROPion XL 300 MG TAB.ER.24H PO SCH (06:13)
[2020-01-07] MEDS: MULTIVITAMINS, THERA 1 EACH TAB PO SCH (06:13)
[2020-01-07 06:22] LABS: Glucose,Whole Blood 131 mg/dL (75-99)
--- NOTE | 2020-01-07 08:38 | ECHOF ---
Referral Reason: MEASUREMENTS -------- HEIGHT: 137.2 cm WEIGHT: 112.0 kg BP: RVIDd: 2.6 cm (< 3.3) IVSd: 1.6 cm (0.6 - 1.1) LVIDd: 2.6 cm (3.9 - 5.3) LVPWd: 1.6 cm (0.6 - 1.1) IVSs: 2.5 cm LVIDs: 1.8 cm LVPWs: 2.3 cm LAESV Index (A-L): 34.89 ml/m Ao Diam: 3.2 cm (2.0 - 3.7) AV Cusp: 2.0 cm (1.5 - 2.6) LA Diam: 3.0 cm (2.7 - 3.8) MV EXCURSION: 13.883 mm (> 18.000) MV EF SLOPE: 54 mm/s (70 - 150) EPSS: 0.5 cm RAP: 5.00 mmHg RVSP: 21.52 mmHg FINDINGS -------- Atrial fibrillation. This was a technically adequate study. The left ventricular size is normal. There is moderate concentric left ventricular hypertrophy. O verall left ventricular systolic function is normal with, an EF between 55 - 60 %. Left ventricular fillimg pressure cannot be estimated due to Atrial fibrillation. The right ventricle is normal in size. LA is moderately dilated 34-39 ml/m2 The right atrial size is normal. Interatrial and interventricular septum intact. The aortic valve is trileaflet and appears structurally normal. The mitral valve is normal. There is trace mitral regurgitation. The tricuspid valve appears structurally normal. Trace tricuspid regurgitation present. Right janie tricular systolic pressure is normal at < 35 mmHg. There is no pulmonic regurgitation present. The aortic root size is normal. Normal inferior vena cava with normal inspiratory collapse consistent with estimated right atrial pre ssure of 5 mmHg. There is no pericardial effusion. CONCLUSIONS -------- 1. Atrial fibrillation. 2. This was a technically adequate study. 3. The left ventricular size is normal. 4. There is moderate concentric left ventricular hypertrophy. 5. Overall left ventricular systolic function is normal with, an EF between 55 - 60 %. 6. Left ventricular fillimg pressure cannot be estimated due to Atrial fibrillation. 7. The right ventricle is normal in size. 8. LA is moderately dilated 34-39 ml/m2 9. The right atrial size is normal. 10. Interatrial and interventricular septum intact. 11. The aortic valve is trileaflet and appears structurally normal. 12. The mitral valve is normal. 13. There is trace mitral regurgitation. 14. The tricuspid valve appears structurally normal. 15. Trace tricuspid regurgitation present. 16. Right ventricular systolic pressure is normal at < 35 mmHg. 17. There is no pulmonic regurgitation present. 18. The aortic root size is normal. 19. Normal inferior vena cava with normal inspiratory collapse consistent with estimated right atrial pressure of 5 mmHg. 20. There is no pericardial effusion. CLIENT ADMINISTRATOR: Melissa Becerra RDCS
[2020-01-07] MEDS ORDERED: ATORVASTATIN 40 MG TAB PO SCH (09:00)
[2020-01-07] MEDS ORDERED: ASPIRIN 81 MG PO SCH (09:00)
[2020-01-07] MEDS ORDERED: LIDOCAINE 1% INJ 10MG/ML (20 ML MDV) ONE (09:09)
[2020-01-07] MEDS ORDERED: VERAPAMIL 2.5 MG/ML 2 ML AMP ONE (09:09)
[2020-01-07] MEDS ORDERED: HEPARIN SODIUM 1,000 UN/ML (10ML VL) ONE (09:10)
[2020-01-07] MEDS ORDERED: IV FLUID CONTINUATION 800 ML IV ONE (09:14)
[2020-01-07] MEDS ORDERED: fentaNYL (PF) 50 MCG/ML 2 ML AMP ONE (09:14)
[2020-01-07 09:20] VITALS: RESP 14; TEMP 97.7
[2020-01-07] MEDS ORDERED: fentaNYL (PF) 50 MCG/ML 2 ML AMP IV ONE (09:41)
[2020-01-07] MEDS ORDERED: LIDOCAINE 1% INJ 10MG/ML (20 ML MDV) SQ ONE (09:46)
[2020-01-07] MEDS ORDERED: VERAPAMIL SYRINGE (5 MG/10 ML) INTRAARTER ONE (09:47)
[2020-01-07] MEDS ORDERED: HEPARIN SODIUM 1,000 UN/ML (10ML VL) IV ONE (09:54)
[2020-01-07] MEDS ORDERED: MIDAZOLAM 2 MG/2 ML VIAL IV ONE (09:54)
[2020-01-07] MEDS ORDERED: IOPAMIDOL-370 125ML BTL INJ ONE ×2 (09:55)
[2020-01-07] MEDS ORDERED: RX INFO: IV CONTRAST WAS GIVEN 1 EACH MISC MISCELLANE PRN (10:08)
[2020-01-07] MEDS ORDERED: SODIUM CHLORIDE 0.9% 1,000 ML IV SCH (10:15)
[2020-01-07] MEDS ORDERED: APIXABAN 5 MG TAB PO SCH ×2 (10:34→21:00)
--- NOTE | 2020-01-07 11:44 | CC ---
CARDIAC CATHETERIZATION REPORT Mrs. Rich is a 64-year-old female with known history of hypertension, hyperlipidemia, diabetes mellitus, who presented with symptoms of progressive dyspnea and episode of chest discomfort. She was noted to be in atrial fibrillation which is new since 2017. Her cardiac enzyme were negative, but because of her pattern of symptoms and her presentation, recommendation made regarding cardiac catheterization. The procedures, risks, and complication were discussed with the patient who is in full understanding and agreement. PROCEDURE: Patient was brought to the [facility] in a fasting semi-sedated state after receiving fentanyl and Benadryl and achieving moderate conscious sedated state. Using Xylocaine anesthesia and Seldinger technique, a 6-Syrian sheath was introduced in the right radial artery. Selective right and left coronary angiography performed using 5-Syrian 3.5 bend right and left Florencio catheter, multiple views of the coronary artery including hemiaxial views were obtained. Following that, catheter and sheath were removed. Hemostasis was obtained with deployment of a TR band. There was no immediate complication. Patient is returned to room in stable condition. Of note, the patient received 5000 units of intravenous heparin as well as intra-arterial verapamil. FINDINGS: LEFT MAIN: This is a short size vessel, large in caliber, bifurcating into left circumflex, left main artery. Left main coronary artery has no evidence of high-grade stenosis. LEFT ANTERIOR DESCENDING ARTERY: This is a large-sized vessel, reaching toward the apex with a wraparound apex segment giving rise to 2 diagonal branches. The left anterior descending artery as well as its branches have no evidence of obstructive coronary artery disease. LEFT CIRCUMFLEX: This is a nondominant, large size vessel, giving rise to 3 obtuse marginal branches, the first one is very proximal. The left circumflex as well as branches have no evidence of obstructive coronary artery disease. RIGHT CORONARY ARTERY: This is a large dominant vessel, has a superior takeoff giving rise to a PDA distally. The right coronary artery as well as branches have no evidence of obstructive coronary artery disease. LEFT VENTRICULOGRAM: Left ventriculogram was not performed. CONCLUSION: 1. Normal coronary arteries. 2. Right dominance. RECOMMENDATION: In view of the finding anatomy, I recommend continue medical therapy. The patient will be started on anticoagulation and be evaluated to restore sinus mechanism down the road. Those findings and recommendation were discussed with the patient and her family and they are in full understanding and agreement. Duration of the Procedure is 13 minutes. MMODL / IJN: [id number] /
--- NOTE | 2020-01-07 11:50 | LTR ---
DATE OF SERVICE: 01/07/2020 RE: Sana Rich Dear Dr. Castaneda; I had the pleasure to perform cardiac catheterization on Mrs. Rich at [facility] on January 07, 2020 and a full copy of the procedure note will be forwarded to you. In brief, she was found to have no evidence of obstructive coronary artery disease. At this time, I will initiate treatment with anticoagulation and evaluate the possibility of restoring sinus mechanism as an outpatient. I will keep you updated on her progress. Thank you again for allowing me to participate in this patient's care. Please free fee to call for any questions. Sincerely yours, MD TYSON ShipleyL / IJN: [id number] /
[2020-01-07 11:55] LABS: Glucose,Whole Blood 205 mg/dL (75-99)
[2020-01-07 13:24] LABS: Basophils % (A) 0 %; Eosinophils # (A) 0.2 k/uL (0-0.7); Eosinophils % (A) 3 %; HCT 37.7 % (34.0-46.0); HGB 14.3 gm/dL (11.4-16.0); Hypochromasia Slight; Lymphocytes # (A) 1.3 k/uL (1.0-4.8); Lymphocytes % (A) 23 %; MCH 38.1 pg (25.0-35.0); MCV 100.2 fL (80.0-100.0); Monocytes # (A) 0.8 k/uL (0-1.0); Monocytes % (A) 14 %; Neutrophils # (A) 3.3 k/uL (1.3-7.7); Neutrophils % (A) 57 %; Platelet Count 206 k/uL (150-450); RBC 3.76 m/uL (3.80-5.40); RDW 12.8 % (11.5-15.5); WBC 5.8 k/uL (3.8-10.6)
[2020-01-07 13:26] VITALS: BP 107/75; PULSE 82
[2020-01-07 13:44] LABS: African American GFR (CKD) >90 (>60 ml/min/1.73 sqM); Anion Gap 8 mmol/L; Blood Urea Nitrogen 13 mg/dL (7-17); Calcium 8.8 mg/dL (8.4-10.2); Carbon Dioxide 29 mmol/L (22-30); Chloride 103 mmol/L (98-107); Glucose 162 mg/dL (74-99); Non-African American GFR(CKD) 83 (>60 ml/min/1.73 sqM); Sodium 140 mmol/L (137-145)
[2020-01-07 13:53] LABS: Potassium 4.4 mmol/L (3.5-5.1)
--- NOTE | 2020-01-07 15:33 | P.DS ---
Providers Date of admission: 01/06/20 01:39 Expected date of discharge: 01/07/20 Attending physician: Kvng Boo Consults: 01/06/20 00:45 Consult Physician Routine Consulting Provider: [facility] Consult Reason/Comments: New onset afib Do you want consulting provider notified?: Yes Primary care physician: Madisyn Castaneda [facility] Course: Diagnosis on discharge: 1. New onset atrial fibrillation, with episode of rapid ventricular response 2. Episode of chest discomfort, myocardial infarction ruled out 3. Episodes of shortness of breath 4. Underlying history of hypertension 5. Underlying history of hyperlipidemia 6. Underlying history of diabetes mellitus 7. Underlying history of morbid obesity Hospital course: Sana Rich is a 64-year-old female who presented to [facility] emergency room with symptoms of not feeling well and feeling lightheaded, she checked her blood pressure and her systolic blood pressure was in the 90, her heart rate was 45 and irregular, patient was also having episodes of feeling fatigued and having shortness of breath and some lower extremity edema , she was evaluated in the emergency room and had evidence of atrial fibrillation, which is a new diagnosis for her, she was started on IV heparin and was admitted to telemetry floor cardiology consultation was requested, patient has a known history of hypertension, hyperlipidemia, diabetes mellitus and obesity, her primary care physician is Dr. Castaneda. Patient was seen and examined on the telemetry floor, she is alert and oriented 3 in no apparent distress, she is maintained on IV heparin, her symptoms have subsided at this time, there is no fever or chills no headache or dizziness no chest pain no shortness of breath no cough no nausea or vomiting no abdominal pain no diarrhea, no blood in the stools, no burning was urination no frequency or urgency no hematuria. On 01/07/2020 patient was seen and examined on the medical floor she is alert and oriented 3 in no apparent distress she underwent cardiac catheterization this morning that revealed normal coronary arteries without any evidence of any coronary artery occlusive disease. Heart rate is well-controlled patient was evaluated by cardiology and was cleared for discharge at this time blood pressure and heart restarting normal range. She was started on metoprolol tartrate 50 mg twice daily. And Lipitor 40 mg once daily. And on Eliquis 5 mg twice daily Patient is doing well there is no fever or chills no headache or dizziness no chest pain no shortness of breath no cough no nausea or vomiting no abdominal pain no diarrhea and no urinary symptoms. During this admission Norvasc was discontinued. Patient will follow-up with cardiology and with her primary care physician Dr. Castaneda within 1 week Patient Condition at Discharge: Serious Plan - Discharge Summary Discharge Rx Participant: No New Discharge Prescriptions: New Apixaban [Eliquis] 5 mg PO BID #60 tab Atorvastatin [Lipitor] 40 mg PO DAILY tab Metoprolol Tartrate [Lopressor] 50 mg PO BID tab Continue Omeprazole [PriLOSEC] 20 mg PO AC-BRKFST Fluticasone Nasal [place] [Flonase Nasal [place]] 1 spr EA NOSTRIL HS Bumetanide [BUMEX] 0.5 mg PO DAILY PRN PRN Reason: Edema Multivitamins, Thera [Multivitamin (formulary)] 1 tab PO DAILY traZODone HCL [Desyrel] 150 mg PO HS Montelukast Sodium [Singulair] 10 mg PO HS Benazepril HCl 20 mg PO DAILY buPROPion XL [Wellbutrin XL] 300 mg PO DAILY Carvedilol 25 mg PO BID glipiZIDE XL [Glucotrol XL] 5 mg PO DAILY Levothyroxine Sodium 137 mcg PO DAILY Olopatadine HCl 1 drop BOTH EYES BID PRN PRN Reason: Allergy Symptoms Discontinued Simvastatin [Zocor] 10 mg PO HS Aspirin 81 mg PO DAILY #30 chew amLODIPine [Norvasc] 10 mg PO DAILY Discharge Medication List Bumetanide [BUMEX] 0.5 mg PO DAILY PRN 10/26/16 [History] Fluticasone Nasal [place] [Flonase Nasal [place]] 1 spr EA NOSTRIL HS 10/26/16 [History] Montelukast Sodium [Singulair] 10 mg PO HS 10/26/16 [History] Multivitamins, Thera [Multivitamin (formulary)] 1 tab PO DAILY 10/26/16 [History] Omeprazole [PriLOSEC] 20 mg PO AC-BRKFST 10/26/16 [History] traZODone HCL [Desyrel] 150 mg PO HS 10/26/16 [History] Benazepril HCl 20 mg PO DAILY 01/06/20 [History] Carvedilol 25 mg PO BID 01/06/20 [History] Levothyroxine Sodium 137 mcg PO DAILY 01/06/20 [History] Olopatadine HCl 1 drop BOTH EYES BID PRN 01/06/20 [History] buPROPion XL [Wellbutrin XL] 300 mg PO DAILY 01/06/20 [History] glipiZIDE XL [Glucotrol XL] 5 mg PO DAILY 01/06/20 [History] Apixaban [Eliquis] 5 mg PO BID #60 tab 01/07/20 [Rx] Atorvastatin [Lipitor] 40 mg PO DAILY tab 01/07/20 [Rx] Metoprolol Tartrate [Lopressor] 50 mg PO BID tab 01/07/20 [Rx] Follow up Appointment(s)/Referral(s): Arya Mcpherson MD [STAFF PHYSICIAN] - 01/14/20 4:00 pm Madisyn Castaneda MD [Primary Care Provider] - 1-2 days
== END 2020-01-07 17:18 | disposition home or self-care (01) ==
LOC: EC 22:17 → 3SCARD 01-06 01:39 → 1SOBS 01-06 14:55
PROVIDERS: ADMIT Internal Medicine; ATTEND Internal Medicine
DX: I48.91 Unspecified atrial fibrillation (principal); R03.1 Nonspecific low blood-pressure reading; R79.89 Other specified abnormal findings of blood chemistry; R07.89 Other chest pain; I45.10 Unspecified right bundle-branch block; E11.42 Type 2 diabetes mellitus with diabetic polyneuropathy; I10 Essential (primary) hypertension; R09.89 Other specified symptoms and signs involving the circulatory and respiratory systems; R06.09 Other forms of dyspnea; M79.7 Fibromyalgia; J45.909 Unspecified asthma, uncomplicated; E78.5 Hyperlipidemia, unspecified; E03.9 Hypothyroidism, unspecified; K58.9 Irritable bowel syndrome, unspecified; D64.9 Anemia, unspecified; F41.9 Anxiety disorder, unspecified; F32.9 Major depressive disorder, single episode, unspecified; R60.0 Localized edema; E66.01 Morbid (severe) obesity due to excess calories; Z68.41 Body mass index [BMI] 40.0-44.9, adult; R41.3 Other amnesia; K21.9 Gastro-esophageal reflux disease without esophagitis; R32 Unspecified urinary incontinence; G47.30 Sleep apnea, unspecified; G89.29 Other chronic pain; M54.9 Dorsalgia, unspecified; M17.0 Bilateral primary osteoarthritis of knee; M19.042 Primary osteoarthritis, left hand; Z99.89 Dependence on other enabling machines and devices; M19.041 Primary osteoarthritis, right hand; Z03.818 Encounter for observation for suspected exposure to other biological agents ruled out; Z79.899 Other long term (current) drug therapy; Z79.890 Hormone replacement therapy; Z79.84 Long term (current) use of oral hypoglycemic drugs; Z79.82 Long term (current) use of aspirin; Z88.0 Allergy status to penicillin; Z88.2 Allergy status to sulfonamides; Z91.011 Allergy to milk products; Z90.49 Acquired absence of other specified parts of digestive tract; Z90.710 Acquired absence of both cervix and uterus; Z87.01 Personal history of pneumonia (recurrent); Z82.5 Family history of asthma and other chronic lower respiratory diseases; Z83.3 Family history of diabetes mellitus; Z82.49 Family history of ischemic heart disease and other diseases of the circulatory system; Z80.7 Family history of other malignant neoplasms of lymphoid, hematopoietic and related tissues; Z80.9 Family history of malignant neoplasm, unspecified; Z80.8 Family history of malignant neoplasm of other organs or systems
CPT/HCPCS: 96376; 96365; 96366; 99285; 36415; 93005 ×2; 93306; 93458; 83880; 80053; 80048; 84443 ×2; 83735; 84484 ×2; 85025 ×2; 85610; 85730 ×2; 71046; G0378 ×3; C1769; C1894; U0003; J2250; J1644 ×3; J2001; J3010; Q9967

== ENCOUNTER → 2020-11-03 | Outpatient (CLI) | payer MEDICARE ==
--- NOTE | 2020-11-04 10:37 | MM ---
Reason for exam: screening (asymptomatic). Last mammogram was performed 9 years and 10 months ago. History: Patient is postmenopausal and has history of high-risk lesion on a previous biopsy at age 55. High risk left mammotome panel of the left breast, January 31, 2011. Physical Findings: A clinical breast exam by your physician is recommended on an annual basis and results should be correlated with mammographic findings. MG 3D Screening Mammo W/Cad Bilateral CC, MLO, and XCCL view(s) were taken. Prior study comparison: December 30, 2010, [facility] DIGITAL LEFT BREAST MAMMOGRAM w/CAD. December 19, 2010, bilateral digital screening mammo w/CAD. The breast tissue is heterogeneously dense. This may lower the sensitivity of mammography. There is no discrete abnormality. No significant changes when compared with prior studies. ASSESSMENT: Negative, BI-RAD 1 RECOMMENDATION: Routine screening mammogram of both breasts in 1 year.
== END | disposition home or self-care (01) ==
LOC: RADMAMWWP 11:26
PROVIDERS: ATTEND Family Medicine
DX: Z12.31 Encounter for screening mammogram for malignant neoplasm of breast (principal); Z78.0 Asymptomatic menopausal state
CPT/HCPCS: 77063; 77067

== ENCOUNTER → 2020-11-12 | Outpatient (CLI) | payer MEDICARE ==
--- NOTE | 2020-11-14 08:05 | CT ---
EXAMINATION TYPE: CT abdomen pelvis wo con DATE OF EXAM: 11/12/2020 HISTORY: Hernia, IBS CT DLP: 1006 mGycm. Automated Exposure Control for Dose Reduction was Utilized. TECHNIQUE: CT scan of the abdomen and pelvis is performed without oral or IV contrast. COMPARISON: NONE FINDINGS: Within the limitations of a non-contrast study, the following observations are made. LUNG BASES: No significant abnormality is appreciated. LIVER/GB: Cholecystectomy clips are seen. Central pneumobilia is identified presumably is related to prior gallbladder surgery. PANCREAS: No significant abnormality is seen. SPLEEN: No significant abnormality is seen. ADRENALS: No significant abnormality is seen. KIDNEYS: No renal stones or hydronephrosis is present bilaterally. BOWEL: Suboptimal evaluation of bowel without enteric contrast. Small sized hiatal hernia. Stomach po anton distended and suboptimally evaluated. No suspicious small or large bowel dilatation. Some scatte red colonic diverticula greatest in the sigmoid colon. Mild fluid and fat stranding localizes to the left pelvis. Cannot exclude mild uncomplicated acute diverticulitis in the appropriate clinical setti ng. GENITAL ORGANS: Uterus is surgically absent. Some scattered bilateral pelvic phleboliths are seen. LYMPH NODES: No greater than 1cm abdominal or pelvic lymph nodes are appreciated. There are few promi nent but subcentimeter lymph nodes throughout the mesentery with mild to moderate ill-defined fluid a nd fat stranding. OSSEOUS STRUCTURES: Mild to moderate disc space narrowing with vacuum disc phenomenon L4-L5 level. OTHER: There is a moderate to large size fat-containing periumbilical hernia with 2.5 cm neck axial i mage 51. Moderate calcified plaque of the aorta extends into branch vessels. IMPRESSION: 1. Sherine mesentery appearance. Differential includes mesenteric panniculitis, along with adjacent inf lammation possibly related to irritable bowel disease, other etiologies are not excluded. Correlate c linically. 2. Moderate to large size fat-containing wide neck paraumbilical hernia. 3. Scattered colonic diverticulosis. Possible mild uncomplicated acute diverticulitis proximal sigmoi d colon left upper and midpelvis. Correlate clinically. No bowel obstruction noted.
== END | disposition home or self-care (01) ==
LOC: RADCTMAIN 16:51
PROVIDERS: ATTEND Surgery Plastic and Reconstructive Surgery
DX: K42.9 Umbilical hernia without obstruction or gangrene (principal); K57.30 Diverticulosis of large intestine without perforation or abscess without bleeding
CPT/HCPCS: 74176

== ENCOUNTER 2021-01-13 08:08 | Day surgery (SDC) | payer MEDICARE ==
[2021-01-11 12:07] VITALS: BMI 44.2
[~2021-01-13 08:08] MED LIST: HEPARIN SODIUM,PORCINE/PF 5,000 UNIT/0.5 ML SYRINGE SQ PRN
[2021-01-13] MEDS ORDERED: ONDANSETRON 4 MG/2 ML VIAL IVP ONE (08:21)
[2021-01-13] MEDS ORDERED: DEXAMETHASONE SOD PHOSPHATE 4 MG/ML 1 ML VIAL IV ONE (08:21)
[2021-01-13] MEDS ORDERED: LACTATED RINGERS 1,000 ML IV SCH (08:21)
[2021-01-13] MEDS ORDERED: HYDROmorphone 0.5 MG/0.5 ML SYRINGE IVP PRN (08:21)
[2021-01-13] MEDS ORDERED: MIDAZOLAM 2 MG/2 ML VIAL IV PRN (08:21)
[2021-01-13] MEDS ORDERED: LIDOCAINE 1% (10MG/ML) FOR IV START INTRADERMA PRN (08:21)
--- NOTE | 2021-01-13 08:45 | P.GSHP ---
History of Present Illness H&P Date: 01/13/21 CHIEF COMPLAINT: Incisional hernia. HISTORY OF PRESENT ILLNESS: The patient is a 65-year-old female who presents with a history of swelling along the mid abdomen for more than one year. Findings were consistent with incisional hernia. Now she presents for further evaluation and management. PAST MEDICAL HISTORY: Please see list. PAST SURGICAL HISTORY: Please see list. MEDICATIONS: Please see list. ALLERGIES: Please see list. SOCIAL HISTORY: No illicit drug use FAMILY HISTORY: No reports of Crohn disease or ulcerative colitis. REVIEW OF ORGAN SYSTEMS: Constitutional: She is over 100+ pounds overweight with morbid obesity. Cardiovascular: Has ischemic cardiomyopathy and also on chronic anticoagulation for atrial fibrillation. EYES: Denies any trouble with vision. Wears glasses PHYSICAL EXAM: VITAL SIGNS: Stable GENERAL: Well-developed pleasant female in no acute distress. HEENT: No scleral icterus. Extraocular movements grossly intact. Moist buccal mucosa. NECK: Supple without lymphadenopathy. CHEST: Unlabored respirations. Equal bilateral excursions. CARDIOVASCULAR: Distal 2+ pulses. ABDOMEN: Soft, nondistended. Incarcerated incisional hernia mid abdomen MUSCULOSKELETAL: No clubbing, cyanosis, or edema. SKIN: Well-perfused with good skin turgor PSYCH: Appropriate affect. Alert and oriented to person place and time ASSESSMENT: 1. Incisional ventral hernia with incarceration 2. Morbid obesity due to excess calories, BMI 44.3 PLAN: 1. Recommend proceeding with robotic ventral hernia repair with mesh. 2. Benefits and risks of surgical intervention was discussed including possibility of open technique. 3. DVT prophylaxis. 4. Antibiotic prophylaxis. 5. She is elevated risk due to morbid obesity and pre-existing heart disease Past Medical History Past Medical History: Atrial Fibrillation, Asthma, Chest Pain / Angina, Diabetes Mellitus, Fibromyalgia, GERD/Reflux, Hyperlipidemia, Hypertension, Memory Impairment, Musculoskeletal Disorder, Osteoarthritis (OA), Pneumonia, Respiratory Disorder, Skin Disorder, Sleep Apnea/CPAP/BIPAP, Thyroid Disorder Additional Past Medical History / Comment(s): NIDDM type II, bilateral feet neuropathy, chronic back pain with disc problems/spur which affects walking, incontinence of urine, IBS, vertigo with bending, occasionally falls, no CPAP use,eczema, Sjogren's, feet swell,no recent CP History of Any Multi-Drug Resistant Organisms: None Reported Past Surgical History: Breast Surgery, Cholecystectomy, Hysterectomy, Orthopedic Surgery, Tonsillectomy Additional Past Surgical History / Comment(s): Bile duct stone removal after cholecystectomy, D&C, L breast biopsy, L carpal tunnel release, colonoscopy. Past Anesthesia/Blood Transfusion Reactions: No Reported Reaction Additional Past Anesthesia/Blood Transfusion Reaction / Comment(s): Sickness with morphine Smoking Status: Never smoker - Past Family History Mother Family Medical History: Cancer, Congestive Heart Failure (CHF), Diabetes Mellitus, Hypertension Additional Family Medical History / Comment(s): Lymphoma Father Family Medical History: COPD Additional Family Medical History / Comment(s): Emphysema Medications and Allergies Home Medications Medication Instructions Recorded Confirmed Type Fluticasone Nasal Dittmer [Flonase 1 spr EA NOSTRIL HS 10/26/16 01/11/21 History Nasal Dittmer] Montelukast Sodium [Singulair] 10 mg PO HS 10/26/16 01/11/21 History Omeprazole [PriLOSEC] 20 mg PO AC-BRKFST 10/26/16 01/11/21 History traZODone HCL [Desyrel] 150 mg PO HS 10/26/16 01/11/21 History Levothyroxine Sodium 137 mcg PO DAILY 01/06/20 01/11/21 History Olopatadine HCl 1 drop BOTH EYES BID PRN 01/06/20 01/11/21 History buPROPion XL [Wellbutrin XL] 300 mg PO DAILY 01/06/20 01/11/21 History glipiZIDE XL [Glucotrol XL] 5 mg PO DAILY 01/06/20 01/11/21 History Apixaban [Eliquis] 5 mg PO BID #60 tab 01/07/20 01/11/21 Rx Atorvastatin [Lipitor] 40 mg PO DAILY tab 01/07/20 01/11/21 Rx Metoprolol Tartrate [Lopressor] 50 mg PO BID tab 01/07/20 01/11/21 Rx 5-Methylfolate 1 tab PO DAILY 01/11/21 History Ezetimibe [Zetia] 10 mg PO DAILY 01/11/21 01/11/21 History Losartan Potassium [Cozaar] 100 mg PO DAILY 01/11/21 01/11/21 History amLODIPine [Norvasc] 10 mg PO DAILY 01/11/21 01/11/21 History hydroCHLOROthiazide [Hydrodiuril] 25 mg PO DAILY PRN 01/11/21 01/11/21 History Allergies Allergy/AdvReac Type Severity Reaction Status Date / Time amoxicillin [From Augmentin] Allergy Unknown Verified 01/11/21 11:18 milk Allergy Nausea & Verified 01/11/21 11:18 Vomiting & Diarrhea Sulfa (Sulfonamide Allergy Unknown Verified 01/11/21 11:19 Antibiotics) sulfamethoxazole Allergy Unknown Verified 01/11/21 11:18 [From Bactrim] morphine AdvReac Hallucinati Verified 01/11/21 11:18 ons
[2021-01-13] MEDS ORDERED: GABAPENTIN 300 MG CAP PO PRN (08:46)
[2021-01-13] MEDS ORDERED: ACETAMINOPHEN TAB 500 MG TAB PO PRN (08:46)
[2021-01-13 09:18] LABS: Glucose,Whole Blood 164 mg/dL (75-99)
[2021-01-13 09:35] LABS: Basophils % (A) 1 %; Eosinophils # (A) 0.2 k/uL (0-0.7); Eosinophils % (A) 4 %; HCT 42.5 % (34.0-46.0); HGB 13.8 gm/dL (11.4-16.0); Lymphocytes # (A) 1.1 k/uL (1.0-4.8); Lymphocytes % (A) 24 %; MCHC 32.4 g/dL (31.0-37.0); MCV 95.5 fL (80.0-100.0); Mean Platelet Volume 8.2; Monocytes # (A) 0.3 k/uL (0-1.0); Monocytes % (A) 7 %; Neutrophils # (A) 2.8 k/uL (1.3-7.7); Neutrophils % (A) 62 %; Platelet Count 173 k/uL (150-450); RBC 4.45 m/uL (3.80-5.40); WBC 4.4 k/uL (3.8-10.6)
[2021-01-13 09:53] LABS: Albumin 4.1 g/dL (3.5-5.0); Calcium 9.7 mg/dL (8.4-10.2); Total Bilirubin 0.9 mg/dL (0.2-1.3); Total Protein 6.8 g/dL (6.3-8.2)
[2021-01-13] MEDS ORDERED: fentaNYL (PF) 50 MCG/ML 2 ML AMP ONE (10:17)
[2021-01-13] MEDS ORDERED: NEOSTIGMINE 1 MG/ML 10 ML VIAL ONE (10:17)
[2021-01-13] MEDS ORDERED: MIDAZOLAM 2 MG/2 ML VIAL ONE (10:17)
[2021-01-13] MEDS ORDERED: LIDOCAINE 1% INJ 10MG/ML (20 ML MDV) ONE (10:17)
[2021-01-13] MEDS ORDERED: PROPOFOL 10 MG/ML 20 ML VIAL IV ONE (10:17)
[2021-01-13] MEDS ORDERED: ROCURONIUM 10 MG/ML (5 ML VIAL) IV ONE (10:17)
[2021-01-13] MEDS ORDERED: LIDOCAINE 1%-EPI 1:100,000 20 ML VIAL ONE (10:17)
[2021-01-13] MEDS ORDERED: ROPIVACAINE 5 MG/ML 30 ML VIAL ONE (10:17)
[2021-01-13] MEDS ORDERED: GLYCOPYRROLATE 0.2 MG/ML 2 ML VIAL ONE (10:17)
[2021-01-13] MEDS ORDERED: SUCCINYLCHOLINE CHLORIDE 100 MG/5 ML SYR IV ONE (10:17)
[2021-01-13] MEDS ORDERED: LIDOCAINE 1%-EPI 1:100,000 20 ML VIAL SQ ONE (10:22)
[2021-01-13 12:45] VITALS: TEMP 96.8
--- NOTE | 2021-01-13 12:48 | P.OP ---
Date of Procedure: 01/13/21 Description of Procedure: SURGEON: ZULLY SOLIS MD PREOPERATIVE DIAGNOSES: 1. Recurrent incarcerated incisional ventral hernia 2. Morbid obesity due to excess calories, BMI 43.7 3. Paroxysmal atrial fibrillation 4. Obstructive sleep apnea 5. Chronic anticoagulation use 6. Hypertensive heart disease with congestive heart failure 7. Chronic obstructive pulmonary disease 8. Hypothyroidism 9. Hyperlipidemia 10. Diabetes type 2, [id number] with diabetic neuropathy 11. Angina 12. Sjogren's 13. Gastroesophageal reflux disease 14. Fibromyalgia 15. Anxiety 16. Depressive disorder POSTOPERATIVE DIAGNOSES: 1. Recurrent incarcerated incisional ventral hernia 2. Morbid obesity due to excess calories, BMI 43.7 3. Paroxysmal atrial fibrillation 4. Obstructive sleep apnea 5. Chronic anticoagulation use 6. Hypertensive heart disease with congestive heart failure 7. Chronic obstructive pulmonary disease 8. Hypothyroidism 9. Hyperlipidemia 10. Diabetes type 2, [id number] with diabetic neuropathy 11. Angina 12. Sjogren's 13. Gastroesophageal reflux disease 14. Fibromyalgia 15. Anxiety 16. Depressive disorder 17. Peritoneal adhesions OPERATION: 1. Robotic-assisted da Diego Xi laparoscopic lysis of adhesions 2. Robotic-assisted da Diego Xi laparoscopic repair of recurrent incarcerated epigastric incisional hernia with mesh, ventralight ST mesh 11.4 cm Anesthesia: GETA, regional, local Estimated Blood Loss (ml): 5 Pathology: None COMPLICATIONS: None. Operative Findings: 1. Upper midline epigastric incisional hernia defect 3 x 3 cm with incarcerated omentum 2. Moderate epigastric and right upper quadrant abdominal adhesions of omentum to abdominal wall 3. Fascia repaired using nonabsorbable #1 V-lock suture INDICATIONS: The patient is a 65-year-old female who presents with a personal history of incarcerated incisional ventral hernia. Surgical intervention with laparoscopic versus robotic and open techniques were reviewed. Placement of mesh was also reviewed. Benefits and risks were thoroughly described. Informed consent was obtained. DESCRIPTION OF PROCEDURE: The patient was brought into the operating room and laid in supine position. After general induction, the abdomen had been prepped and draped in standard sterile fashion. Ioban draping was also placed. Prior to incision, a timeout protocol was confirmed with surgical team regarding the patient's name including procedures to be performed. The robot was primed prior to the procedure. A field block using local anesthetic was placed along hernia site including the proposed port sites. Initial incision was made with an #11 blade along the left upper quadrant. A 0 degree 5 mm laparoscopic trocar entry was performed and insufflated. Three 8 mm ports were placed along the left lateral abdominal wall under direct localization after exchanging the 5-mm for an 8 mm port. Placements of the ports were 15 cm from the target anatomy and 10 cm apart. An accessory 12 mm port was placed at the right upper quadrant for exchange of mesh including sutures. The da Diego Xi robot was previously primed, prepped and draped then docked from the right side of the patient onto the left side of the patient. I then sat at the robot Da Diego Xi console where working arms of the robot including Bovie cautery connected to robotic scissors, needle water tanker driver, and graspers placed by the account management assistant. Moderate right upper quadrant and epigastric abdominal wall adhesions of multiple abdominal was found of the omentum to the abdominal wall. Using vessel sealer adhesions were lysed for over 30 minutes. Incarcerated omental contents were found along the upper midline defect. The defect was reduced at the upper midline defect 3 x 3 cm. The incarcerated contents were reduced. Next, hemostasis was checked with cautery. The hernia defects were oversewn using #1 nonabsorbable V-lock suture for each defect separately with fascial imbrication x 2. Next, ventralight ST mesh 11.4 cm was placed with the rough side towards the abdominal wall as to cover the epigastric defect. 2-0 VLOC absorbable 9 inch sutures were used to fixate the mesh. A final endoscopic imaging was obtained. All instruments and pneumoperitoneum were evacuated from the abdominal cavity. The da Diego Xi robot was undocked from the patient. I re-scrubbed into the case for closure of incisions. The fascia of the 12-mm port was probed and less than 8-mm in size. The incisions were reapproximated using 4-0 Monocryl in an interrupted subcuticular fashion. Liquid glue was applied to the skin after cleansing the skin with normal saline and dilute hydrogen peroxide. An abdominal binder was placed. A pressure dressing was placed prior. At the end of the procedure, needle, sponge, and instrument count had been verified correct by director medical surgical. The patient was taken to the postanesthesia care unit in stable condition. Plan - Discharge Summary Discharge Rx Participant: Yes New Discharge Prescriptions: New Acetaminophen Tab [Tylenol Tab] 1,000 mg PO Q6HR PRN #30 tablet PRN Reason: Pain Continue Omeprazole [PriLOSEC] 20 mg PO AC-BRKFST Fluticasone Nasal Luck [Flonase Nasal Luck] 1 spr EA NOSTRIL HS traZODone HCL [Desyrel] 150 mg PO HS Montelukast Sodium [Singulair] 10 mg PO HS buPROPion XL [Wellbutrin XL] 300 mg PO DAILY glipiZIDE XL [Glucotrol XL] 5 mg PO DAILY Levothyroxine Sodium 137 mcg PO DAILY Olopatadine HCl 1 drop BOTH EYES BID PRN PRN Reason: Allergy Symptoms Apixaban [Eliquis] 5 mg PO BID #60 tab Atorvastatin [Lipitor] 40 mg PO DAILY tab Metoprolol Tartrate [Lopressor] 50 mg PO BID tab amLODIPine [Norvasc] 10 mg PO DAILY hydroCHLOROthiazide [Hydrodiuril] 25 mg PO DAILY PRN PRN Reason: Edema Losartan Potassium [Cozaar] 100 mg PO DAILY Ezetimibe [Zetia] 10 mg PO DAILY 5-Methylfolate 1 tab PO DAILY Discharge Medication List Fluticasone Nasal Luck [Flonase Nasal Luck] 1 spr EA NOSTRIL HS 10/26/16 [History] Montelukast Sodium [Singulair] 10 mg PO HS 10/26/16 [History] Omeprazole [PriLOSEC] 20 mg PO AC-BRKFST 10/26/16 [History] traZODone HCL [Desyrel] 150 mg PO HS 10/26/16 [History] Levothyroxine Sodium 137 mcg PO DAILY 01/06/20 [History] Olopatadine HCl 1 drop BOTH EYES BID PRN 01/06/20 [History] buPROPion XL [Wellbutrin XL] 300 mg PO DAILY 01/06/20 [History] glipiZIDE XL [Glucotrol XL] 5 mg PO DAILY 01/06/20 [History] Apixaban [Eliquis] 5 mg PO BID #60 tab 01/07/20 [Rx] Atorvastatin [Lipitor] 40 mg PO DAILY tab 01/07/20 [Rx] Metoprolol Tartrate [Lopressor] 50 mg PO BID tab 01/07/20 [Rx] 5-Methylfolate 1 tab PO DAILY 01/11/21 [History] Ezetimibe [Zetia] 10 mg PO DAILY 01/11/21 [History] Losartan Potassium [Cozaar] 100 mg PO DAILY 01/11/21 [History] amLODIPine [Norvasc] 10 mg PO DAILY 01/11/21 [History] hydroCHLOROthiazide [Hydrodiuril] 25 mg PO DAILY PRN 01/11/21 [History] Acetaminophen Tab [Tylenol Tab] 1,000 mg PO Q6HR PRN #30 tablet 01/13/21 [Rx] Follow up Appointment(s)/Referral(s): Zully Solis MD [STAFF PHYSICIAN] - 01/18/21 Patient Instructions/Handouts: Laparoscopic Herniorrhaphy (DC), Abdominal Binder (ED), Ventral Hernia Repair (GEN) Activity/Diet/Wound Care/Special Instructions: No lifting over 4 pounds in 4 weeks until JanuaryNovember shower. No bath tub soaks for two weeks until January Diet as tolerated. Use Tylenol scheduled for the next 24-48 hours for best pain relief. Use ice along incisions for today to prevent swelling. Discharge Disposition: HOME SELF-CARE
[2021-01-13 13:09] LABS: Glucose,Whole Blood 278 mg/dL (75-99)
[2021-01-13] MEDS ORDERED: INSULIN ASPART (NovoLOG) 100 UNIT/ML VIAL SQ ONE (13:15)
[2021-01-13] MEDS ORDERED: SODIUM CHLORIDE 0.9% 1,000 ML IV ONE (13:52)
[2021-01-13 13:59] VITALS: RESP 20
[2021-01-13] MEDS ORDERED: HYDROcodone/APAP 5-325MG 1 EACH TAB PO PRN ×2 (14:27→14:38)
[2021-01-13] MEDS ORDERED: HYDROcodone/APAP 5-325MG 1 EACH TAB ONE (14:29)
[2021-01-13 15:19] VITALS: PULSE 62
[2021-01-13 16:27] VITALS: BP 128/72
--- NOTE | 2021-01-13 19:55 | P.ANPRN ---
Procedure Note - Anesthesia - Nerve Block Performed Bilateral Erector Spinae Single Time Out Performed: Yes Date of Procedure: 01/13/21 Procedure Start Time: 09:45 Procedure Stop Time: :52 Location of Patient: PreOp Indication: Acute Post-Operative Pain, Requested by Surgeon Sedation Type: Sedate with meaningful contact maintained Preparation: Sterile Prep Position: Prone Needle Types: Pajunk Needle Gauge: 21 Ultrasound used to visualize needle placement: Yes Ultrasound used to observe medication spread: Yes Blood Aspirated: No Pain Paresthesia on Injection Noted: No Resistance on Injection: Normal Image Stored and Saved: Yes Events: Uneventful and Well Tolerated (ropi .5% 15cc plus xylo 1% with epi 15cc bilaterally at t10)
== END 2021-01-13 16:23 | disposition home or self-care (01) ==
LOC: OR 08:08
PROVIDERS: ATTEND Surgery Plastic and Reconstructive Surgery
DX: K43.2 Incisional hernia without obstruction or gangrene (principal); K66.0 Peritoneal adhesions (postprocedural) (postinfection); E78.5 Hyperlipidemia, unspecified; E11.40 Type 2 diabetes mellitus with diabetic neuropathy, unspecified; K21.9 Gastro-esophageal reflux disease without esophagitis; M79.7 Fibromyalgia; F41.9 Anxiety disorder, unspecified; F32.9 Major depressive disorder, single episode, unspecified; Z98.890 Other specified postprocedural states; M35.00 Sjogren syndrome, unspecified; J44.9 Chronic obstructive pulmonary disease, unspecified; G47.33 Obstructive sleep apnea (adult) (pediatric); I48.0 Paroxysmal atrial fibrillation; Z79.01 Long term (current) use of anticoagulants; E66.01 Morbid (severe) obesity due to excess calories; Z68.41 Body mass index [BMI] 40.0-44.9, adult
CPT/HCPCS: 49657; S2900; 64999; 80053; 85025

== ENCOUNTER → 2021-09-02 | Outpatient (CLI) | payer MEDICARE ==
--- NOTE | 2021-09-02 12:42 | US ---
EXAMINATION TYPE: US venous doppler duplex LE LT DATE OF EXAM: 09/02/2021 12:28 PM COMPARISON: CLINICAL HISTORY: R22.42 Swelling Left Leg. Left leg pain. On blood thinners. Patient fell and leg got trapped between wall and bed. SIDE PERFORMED: Left TECHNIQUE: The lower extremity deep venous system is examined utilizing real time linear array sonog drew with graded compression, doppler sonography and color-flow sonography. VESSELS IMAGED: Common Femoral Vein Deep Femoral Vein Greater Saphenous Vein * Femoral Vein Popliteal Vein Small Saphenous Vein * Proximal Calf Veins (* superficial vessels) Left Leg: Negative for DVT IMPRESSION: No evidence for DVT at this time.
== END | disposition home or self-care (01) ==
LOC: RADUSWWP 12:09
PROVIDERS: ATTEND Family Medicine
DX: R22.42 Localized swelling, mass and lump, left lower limb (principal)

== ENCOUNTER 2022-10-20 11:13 | Day surgery (SDC) | payer MEDICARE, OTHER ==
[~2022-10-20 11:13] MED LIST changes: -HEPARIN SODIUM,PORCINE/PF 5,000 UNIT/0.5 ML SYRINGE SQ PRN; +IV FLUID CONTINUATION 1,000 ML IV ONE; +LACTATED RINGERS 1,000 ML IV SCH; +LIDOCAINE 1% (10MG/ML) FOR IV START INTRADERMA PRN
[2022-10-20] MEDS ORDERED: LACTATED RINGERS 1,000 ML IV ONE ×3 (12:17→13:51)
[2022-10-20 12:31] VITALS: RESP 16; TEMP 98
[2022-10-20 12:45] LABS: Glucose,Whole Blood 159 mg/dL (70-110)
[2022-10-20] MEDS ORDERED: PROPOFOL 10 MG/ML 20 ML VIAL IV ONE (13:31)
--- NOTE | 2022-10-20 13:49 | P.PCN ---
Date of Procedure: 10/20/22 Procedure(s) Performed: BRIEF HISTORY: Patient is a 67-year-old pleasant white female scheduled for an elective colonoscopy as a part of evaluation of screening for colon cancer and positive cologuard. PROCEDURE PERFORMED: Colonoscopy with snare polypectomy and biopsy. PREOPERATIVE DIAGNOSIS: Screening for colon cancer/positive cologuard. IV sedation per Anesthesia. PROCEDURE: After informed consent was obtained, the patient, was brought into the endoscopy unit. IV sedation was administered by Anesthesia under continuous monitoring. Digital rectal examination was normal. Initially the Olympus CF-160 flexible video colonoscope was then inserted in the rectum, gradually advanced into the cecum without any difficulty. Careful examination was performed as the scope was gradually being withdrawn. Ileocecal valve and the appendiceal orifice were visualized and appeared normal. Prep was excellent. Mucosa of the cecum, ascending colon, appeared normal. The transverse colon there was a 3 mm and 5 mm polyp removed by cold biopsy. Rest of the transverse colon, descending colon, appeared normal. The sigmoid: There was a 2 mm polyp removed by snare polypectomy. Scattered sigmoid diverticulosis seen. Rest of the sigmoid colon, and rectum appeared normal. Retroflexion was performed in the rectum and no lesions were seen. The patient tolerated the procedure well. IMPRESSION: 3 mm and 5 mm transverse colon polyp status post polypectomy 8 mm sigmoid: Polyp status post polypectomy Scattered sigmoid diverticulosis RECOMMENDATIONS: Findings of this examination were discussed with the patient as well as a family.. She was advised to follow with the biopsy results. If the biopsy is adenoma she can have a repeat colonoscopy in 5 years
[2022-10-20 13:58] LABS: Glucose,Whole Blood 164 mg/dL (70-110)
[2022-10-20 14:06] VITALS: BP 183/91; PULSE 69
== END 2022-10-20 14:45 | disposition home or self-care (01) ==
LOC: ORWHC2ENDO 11:13
PROVIDERS: ATTEND Internal Medicine Gastroenterology
DX: D12.3 Benign neoplasm of transverse colon (principal); K57.30 Diverticulosis of large intestine without perforation or abscess without bleeding; R19.5 Other fecal abnormalities; Z88.2 Allergy status to sulfonamides; Z88.6 Allergy status to analgesic agent; I10 Essential (primary) hypertension; E78.5 Hyperlipidemia, unspecified; I48.91 Unspecified atrial fibrillation; J45.909 Unspecified asthma, uncomplicated; G47.33 Obstructive sleep apnea (adult) (pediatric); M79.7 Fibromyalgia; E11.40 Type 2 diabetes mellitus with diabetic neuropathy, unspecified; Z87.19 Personal history of other diseases of the digestive system; Z79.01 Long term (current) use of anticoagulants; Z79.899 Other long term (current) drug therapy
CPT/HCPCS: 88305; 45380; 45385; J2704

== ENCOUNTER → 2022-12-11 | Outpatient (CLI) | payer MEDICARE, OTHER ==
[~2022-12-11] MED LIST changes: -IV FLUID CONTINUATION 1,000 ML IV ONE; -LACTATED RINGERS 1,000 ML IV SCH; -LIDOCAINE 1% (10MG/ML) FOR IV START INTRADERMA PRN; +SODIUM CHLORIDE 0.9% 500 ML 500 ML in EMPTY BAG 1 BAG IV PRN; +ZOLEDRONIC ACID 5 MG in SODIUM CHLORIDE 0.9% 100 ML IV NR
[2022-12-11 13:22] VITALS: BP 150/72; PULSE 67; RESP 16; TEMP 97.6
== END ==
LOC: PROCWHC3 13:00
PROVIDERS: ATTEND Nurse Practitioner Family
DX: M80.00XA Age-related osteoporosis with current pathological fracture, unspecified site, initial encounter for fracture (principal)
CPT/HCPCS: 96365; J3489

== ENCOUNTER → 2024-03-11 | Outpatient (CLI) | payer MEDICARE | END | disposition home or self-care (01) | LOC: LABPRL 13:08 | PROVIDERS: ATTEND Family Medicine | DX: I10 Essential (primary) hypertension (principal); E11.9 Type 2 diabetes mellitus without complications; E03.9 Hypothyroidism, unspecified | CPT/HCPCS: 80053; 80061; 83036; 84443 ==